=== PATIENT | female | born 1970 | race Caucasian/White ===

== ENCOUNTER → 2018-02-01 10:34 | Outpatient (CLI) | payer OTHER, SELFPAY | PROVIDERS: Visit Provider Emergency Medicine | DX: E11.9 Type 2 diabetes mellitus without complications (principal) ==

== ENCOUNTER → 2018-03-07 14:23 | Outpatient (CLI) | payer OTHER, SELFPAY ==
--- NOTE | 2018-03-07 14:23 | XR_ITS ---
XR ankle wt bearing LT min 3V HISTORY: Left ankle pain ORDERING PHYSICIAN: Susie Davis DPM PATIENT AGE: 47 years COMPARISON: None FINDINGS: Hypertrophic changes are present at the medial and lateral malleoli region with a separate calcific density at the tip of the medial malleolus which could be due to an old fracture. Osteoarthritic changes present at the tibiotalar joint with mild osteophyte formation slight decrease in the joint space. IMPRESSION: Mild osteoarthritis of the ankle
--- NOTE | 2018-03-07 14:23 | XR_ITS ---
XR foot wt bearing LT 3V HISTORY: Foot pain ORDERING PHYSICIAN: Susie Davis DPM PATIENT AGE: 47 years COMPARISON: None FINDINGS: No fracture or dislocation. No lytic or blastic change. There is normal mineralization.. The joint spaces are well-preserved. No significant degenerative/arthritic changes. No erosive changes evident. Borderline pes planus Mild nonspecific hypertrophic change involves the anterior distal aspect of the talus IMPRESSION: No acute finding. Borderline pes planus
--- NOTE | 2018-03-07 14:23 | XR_ITS ---
XR foot wt bearing RT 3V HISTORY: Right foot pain ORDERING PHYSICIAN: Susie Davis DPM PATIENT AGE: 47 years COMPARISON: None FINDINGS: There is moderate hallux valgus with first metatarsophalangeal angle of 37 degrees with osteoarthritic change of the first metatarsophalangeal joint and bony hypertrophy of the distal aspect of the first metatarsal. Several calcific densities are present at the base and medial aspect of the proximal phalanx of the great toe and could be related to old injury. No acute fracture or dislocation. No lytic or blastic change. IMPRESSION: Moderate hallux valgus with bunion formation and osteoarthritis of the first MTP joint with calcific debris at the medial aspect of first MTP joint
--- NOTE | 2018-03-07 14:23 | XR_ITS ---
XR ankle wt bearing RT min 3V HISTORY: Right ankle pain ORDERING PHYSICIAN: Susie Davis DPM PATIENT AGE: 47 years COMPARISON: None FINDINGS: A small calcific density is present at the medial tip of the fibula and may represent an old avulsion fracture. No other significant anomalies are evident. IMPRESSION: Old avulsion fracture of the tip of the lateral malleolus
== END ==
PROVIDERS: PCP Emergency Medicine; Visit Provider Podiatrist
DX: M79.673 Pain in unspecified foot (principal)
CPT/HCPCS: 73610; 73630

== ENCOUNTER 2018-03-28 15:05 | Outpatient (CLI) | payer OTHER, SELFPAY ==
[2018-03-28 15:42] LABS: PHA INR Fingerstick 1.9 (0.9-1.1)
== END 2018-03-28 15:48 | disposition home or self-care (01) ==
PROVIDERS: PCP Emergency Medicine; Visit Provider Emergency Medicine
DX: Z79.01 Long term (current) use of anticoagulants (principal); Z51.81 Encounter for therapeutic drug level monitoring; I63.40 Cerebral infarction due to embolism of unspecified cerebral artery
CPT/HCPCS: 85610; 99211; G0463

== ENCOUNTER 2018-04-07 15:01 | Outpatient (CLI) | payer OTHER, SELFPAY ==
[2018-04-07 15:52] LABS: PHA INR Fingerstick 2.1 (0.9-1.1)
== END 2018-04-07 15:59 | disposition home or self-care (01) ==
LOC: ACC 15:01
PROVIDERS: PCP Emergency Medicine; Visit Provider Emergency Medicine
DX: Z79.01 Long term (current) use of anticoagulants (principal); Z51.81 Encounter for therapeutic drug level monitoring; I63.9 Cerebral infarction, unspecified
CPT/HCPCS: 85610; 99211; G0463

== ENCOUNTER → 2018-08-05 13:08 | Outpatient (CLI) | payer OTHER, SELFPAY ==
[2018-08-05 18:28] LABS: Amphetamine/Metha Screen,Urine Negative ng/mL (<1000); Barbiturates Screen,Urine Negative ng/mL (<200); Benzodiazepines Screen,Urine Negative ng/mL (<200); Cannabinoid Screen,Urine Positive ng/mL (<50); Cocaine Screen,Urine Negative ng/mL (<300); Methadone Screen,Urine Negative ng/mL (<300); Opiate Screen,Urine Negative ng/mL (<300); Phencyclidine Screen,Urine Negative ng/mL (<25)
== END ==
PROVIDERS: Visit Provider Nurse Practitioner Family
DX: Z79.899 Other long term (current) drug therapy (principal)
CPT/HCPCS: 80305

== ENCOUNTER → 2018-11-03 13:21 | Outpatient (CLI) | payer OTHER, SELFPAY ==
[2018-11-03 14:07] LABS: Amphetamine/Metha Screen,Urine Negative ng/mL (<1000); Barbiturates Screen,Urine Negative ng/mL (<200); Benzodiazepines Screen,Urine Negative ng/mL (<200); Cannabinoid Screen,Urine Positive ng/mL (<50); Cocaine Screen,Urine Negative ng/mL (<300); Methadone Screen,Urine Negative ng/mL (<300); Opiate Screen,Urine Negative ng/mL (<300); Phencyclidine Screen,Urine Negative ng/mL (<25)
== END ==
PROVIDERS: Visit Provider Nurse Practitioner Family
DX: J39.2 Other diseases of pharynx (principal); Z79.899 Other long term (current) drug therapy
CPT/HCPCS: 80305

== ENCOUNTER → 2019-01-03 19:08 | Outpatient (CLI) | payer OTHER, SELFPAY ==
[2019-01-03 19:31] LABS: Basophils # 0.1 K/mm3 (0-0.2); Basophils % 0.7 % (0.1-2.0); Eosinophils # 0.2 K/mm3 (0.0-0.4); Eosinophils % 1.5 % (0.1-12.0); Hematocrit 46.5 % (37.0-47.0); Hemoglobin 15.4 g/dL (12.2-16.2); Lymphocytes # 4.8 K/mm3 (0.7-4.5); Lymphocytes % 41.4 % (10-50); Mean Corpuscular HGB Conc 33.2 g/dL (31.8-35.4); Mean Corpuscular Hemoglobin 31.2 pg (27.0-31.2); Monocytes # 0.8 K/mm3 (0.1-1.0); Monocytes % 6.6 % (1.7-9.3); Neutrophils # 5.8 K/mm3 (1.8-7.8); Neutrophils % 49.7 % (37.0-80.0); Platelet Count 595 K/mm3 (142-424); Red Blood Count 4.95 M/mm3 (4.20-5.40); Red Cell Distribution Width 13.3 % (11.5-17.5); White Blood Count 11.7 K/mm3 (4.8-10.8)
[2019-01-03 21:23] LABS: Hemoglobin A1C 10.8 % (0.0-7.0)
[2019-01-03 21:29] LABS: Alanine Aminotransferase 27 U/L (12-78); Albumin Level 3.5 gm/dL (3.4-5.0); Albumin/Globulin Ratio 0.9 (1.1-1.8); Alkaline Phosphatase 117 U/L (46-116); Anion Gap 17.5 mEq/L (5-15); Aspartate Amino Transferase 12 U/L (15-37); Bilirubin,Total 0.4 mg/dL (0.2-1.0); Blood Urea Nitrogen 7 mg/dL (7-18); Calcium 9.4 mg/dL (8.5-10.1); Carbon Dioxide 22 mmol/L (21.0-32.0); Chloride 97 mmol/L (98-107); Chol/HDL Ratio 4.6 (1-3.5); Cholesterol 166 mg/dL (140-200); Creatinine,Serum 0.75 mg/dL (0.55-1.02); Estimated Glomerular Filt Rate 83 ml/min (>60); Free T4 (Free Thyroxine) 0.88 ng/dl (0.76-1.46); GFR (African American) 100 ML/MIN (>60); Globulin 4.1 gm/dl (1.3-3.2); Glucose 324 mg/dL (74-106); HDL Cholesterol 36 mg/dL (29-89); Potassium 4.5 mmoL/L (3.5-5.1); Sodium 132 mmol/L (136-145); Thyroid Stimulating Hormone 2.83 uIU/ml (0.358-3.740); Total Protein,Serum 7.6 gm/dL (6.4-8.2)
[2019-01-03 21:30] LABS: Triglycerides 467 mg/dL (30-200)
[2019-01-05 07:49] LABS: Vitamin D 25 Hydroxy 10.4 ng/mL (30.0-100.0)
[2019-01-05 11:20] LABS: Creatinine, Urine 63.6 mg/dL (Not Estab.); Microalbumin, Urine 57.6 ug/mL (Not Estab.)
== END ==
PROVIDERS: Visit Provider Nurse Practitioner Family
DX: R53.83 Other fatigue (principal); E11.9 Type 2 diabetes mellitus without complications; R53.1 Weakness; E78.5 Hyperlipidemia, unspecified; I10 Essential (primary) hypertension; R69 Illness, unspecified
CPT/HCPCS: 80053; 80061; 82043; 82570; 82652; 83036; 84439; 84443; 85025

== ENCOUNTER → 2019-01-25 15:58 | Outpatient (CLI) | payer OTHER, SELFPAY | PROVIDERS: Visit Provider Nurse Practitioner Family | DX: R10.2 Pelvic and perineal pain (principal) | CPT/HCPCS: 87210 ==

== ENCOUNTER → 2019-01-27 17:56 | Outpatient (CLI) | payer OTHER, SELFPAY ==
[2019-01-27 19:11] LABS: Amphetamine/Metha Screen,Urine Negative ng/mL (<1000); Barbiturates Screen,Urine Negative ng/mL (<200); Benzodiazepines Screen,Urine Negative ng/mL (<200); Cannabinoid Screen,Urine Positive ng/mL (<50); Cocaine Screen,Urine Negative ng/mL (<300); Methadone Screen,Urine Negative ng/mL (<300); Opiate Screen,Urine Negative ng/mL (<300); Phencyclidine Screen,Urine Negative ng/mL (<25)
== END ==
PROVIDERS: Visit Provider Nurse Practitioner Family
DX: Z79.899 Other long term (current) drug therapy (principal)
CPT/HCPCS: 80305

== ENCOUNTER → 2019-04-25 13:58 | Outpatient (CLI) | payer OTHER, SELFPAY ==
[2019-04-25 14:39] LABS: Amphetamine/Metha Screen,Urine Negative ng/mL (<1000); Barbiturates Screen,Urine Negative ng/mL (<200); Benzodiazepines Screen,Urine Negative ng/mL (<200); Cannabinoid Screen,Urine Positive ng/mL (<50); Cocaine Screen,Urine Negative ng/mL (<300); Methadone Screen,Urine Negative ng/mL (<300); Opiate Screen,Urine Positive ng/mL (<300); Phencyclidine Screen,Urine Negative ng/mL (<25)
[2019-04-25 14:45] LABS: Hemoglobin A1C 10.9 % (0.0-7.0)
[2019-04-25 14:52] LABS: Chol/HDL Ratio 4.4 (1-3.5); Cholesterol 137 mg/dL (140-200); HDL Cholesterol 31 mg/dL (29-89)
[2019-04-25 14:53] LABS: Triglycerides 547 mg/dL (30-200)
[2019-05-01 12:19] LABS: Codeine Negative (Cutoff=100); Hydrocodone Negative (Cutoff=100); Hydromorphone Negative (Cutoff=100); Morphine Positive (.)
[2019-05-02 19:52] LABS: Morphine Confirm 800 ng/mL (Cutoff=100); Opiates Positive (.)
== END ==
PROVIDERS: Visit Provider Nurse Practitioner Family
DX: E11.9 Type 2 diabetes mellitus without complications (principal); Z79.899 Other long term (current) drug therapy; Z79.84 Long term (current) use of oral hypoglycemic drugs
CPT/HCPCS: 80061; 80305; 80361; 83036; G0480

== ENCOUNTER → 2019-04-27 13:52 | Outpatient (POV) | payer OTHER, SELFPAY | PROVIDERS: Visit Provider Internal Medicine Nephrology | DX: Z00.00 Encounter for general adult medical examination without abnormal findings (principal) ==

== ENCOUNTER → 2019-04-27 15:01 | Outpatient (CLI) | payer OTHER, SELFPAY ==
[2019-04-27 15:07] LABS: Microscopic, Urine URINE MICROSCOPIC (MICROSCOPIC)
[2019-04-27 16:02] LABS: Appearance,Urine CLEAR (Clear); Bilirubin,Urine Negative (Negative); Blood, Urine TRACE-I (Negative); Color,Urine YELLOW (Yellow); Glucose,Urine (UA) 2+ (Negative); Ketones,Urine Negative (Negative); Leukocyte Esterase,Urine Negative (Negative); Nitrate,Urine Negative (Negative); Protein,Urine Negative (Negative); Specific Gravity, Urine <= 1.005 (1.005-1.030); Urobilinogen,Urine 0.2 EU/dl (0.2)
[2019-04-27 16:10] LABS: Creatinine,Urine Random 21 mg/dL (20-320)
[2019-04-27 16:14] LABS: Basophils # 0.1 K/mm3 (0-0.2); Basophils % 0.7 % (0.1-2.0); Eosinophils # 0.2 K/mm3 (0.0-0.4); Eosinophils % 1.7 % (0.1-12.0); Hematocrit 36.8 % (37.0-47.0); Hemoglobin 13.1 g/dL (12.2-16.2); Lymphocytes # 6.5 K/mm3 (0.7-4.5); Lymphocytes % 44.2 % (10-50); Mean Corpuscular HGB Conc 35.4 g/dL (31.8-35.4); Mean Corpuscular Hemoglobin 32.3 pg (27.0-31.2); Mean Corpuscular Volume 91.2 fl (81-99); Mean Platelet Volume 7.4 fl (7.4-10.4); Monocytes # 0.9 K/mm3 (0.1-1.0); Monocytes % 5.9 % (1.7-9.3); Neutrophils % 47.6 % (37.0-80.0); Platelet Count 438 K/mm3 (142-424); Red Blood Count 4.04 M/mm3 (4.20-5.40); White Blood Count 14.6 K/mm3 (4.8-10.8)
[2019-04-27 16:24] LABS: Total Protein,Urine Random 5.4 mg/dL (0.0-11.9)
[2019-04-27 16:54] LABS: WBC,Urine Occasional #/hpf (0-3)
[2019-04-27 16:55] LABS: Bacteria,Urine Trace /lpf
[2019-04-27 18:12] LABS: Albumin Level 3.3 gm/dL (3.4-5.0); Anion Gap 14.5 mEq/L (5-15); Blood Urea Nitrogen 8 mg/dL (7-18); Calcium 8.8 mg/dL (8.5-10.1); Carbon Dioxide 26 mmol/L (21.0-32.0); Chloride 100 mmol/L (98-107); Creatinine,Serum 0.78 mg/dL (0.55-1.02); Estimated Glomerular Filt Rate 79 ml/min (>60); GFR (African American) 96 ML/MIN (>60); Glucose 270 mg/dL (74-106); Phosphorous 4.2 mg/dL (2.4-4.9); Potassium 3.5 mmoL/L (3.5-5.1); Sodium 137 mmol/L (136-145)
[2019-04-29 20:47] LABS: Parathyroid Hormone Intact 13 pg/mL (15-65); Vitamin D 25 Hydroxy 30.6 ng/mL (30.0-100.0)
== END ==
PROVIDERS: Visit Provider Internal Medicine Nephrology
DX: R80.9 Proteinuria, unspecified (principal)
CPT/HCPCS: 36415; 80069; 81001; 82570; 82652; 83970; 84155; 85025

== ENCOUNTER → 2019-05-24 14:46 | Outpatient (CLI) | payer OTHER, SELFPAY ==
[2019-05-24 15:37] VITALS: BMI 30.7
--- NOTE | 2019-05-24 16:05 | MM_ITS ---
MM Dig screening mamm BI w/CAD ORDERING PHYSICIAN : Yury Amaya MD PATIENT AGE: 48 years GENDER: Female COMPARISON: Only one prior screening mammogram from January 14, 2017 available. INDICATION: Routine screening mammogram No hormones. No new complaints. Noncontributory family history. TECHNIQUE: Standard CC and MLO images were obtained. R2 CAD reviewed. ======= Changes again saw horse [place] [employer] [place] off [address] [place] ROUTINE, SCREENING MAMM: FINDINGS: Lower density breast with mild to moderate residual residual fibroglandular elements. Mild/moderate fatty replacement. RIGHT BREAST: No suspicious areas. No new areas significant concern Overlapping markings at the superior breast again for density here which dissipates on the cc view. Only minimal Linear fibroglandular elements towards lateral breast seen on cc view . No focal mass or discrete density of significant concern between the 2 projections Follow-up breast exam, as well as self breast exam bilaterally, but with attention the upper outer quadrant right breast suggested & may be of benefit to compliment mammography. LEFT BREAS :No suspicious areas. No new areas of significant concern. Similar fibroglandular elements lateral retroareolar region, unchanged previous study ...... IMPRESSION: ......... No new areas of significant concern. Bilateral follow-up in one year Areas of density on one view dissipate on the other projection-supporting merely overlapping fibroglandular elements Cc views appear unchanged.... Follow-up in not over one year recommended. BI-RADS Category: 2 Benign Finding(s) RECOMMENDED FOLLOW-UP: 1YR 1 YEAR FOLLOW-UP (A letter has been sent to the patient regarding results of the study.)
== END ==
LOC: DIETICIAN 14:50 → RAD 16:08
PROVIDERS: PCP Emergency Medicine; Visit Provider Emergency Medicine
DX: Z12.31 Encounter for screening mammogram for malignant neoplasm of breast (principal); Z71.3 Dietary counseling and surveillance; E11.40 Type 2 diabetes mellitus with diabetic neuropathy, unspecified
CPT/HCPCS: 77067; 97802

== ENCOUNTER 2020-09-17 16:39 | Emergency (ER) | payer MEDICAID, SELFPAY ==
[2020-09-17 17:06] VITALS: BP 130/98; PULSE 90; RESP 18; TEMP 36.7; O2SAT 95; BMI 29.9
[2020-09-17 17:26] LABS: Adenovirus,PCR Not Detected (NotDetected); Bordetella Pertussis Not Detected (NotDetected); Chlamydophila Pneumoniae, PCR Not Detected (NotDetected); Coronavirus 19, PCR Not Detected (NotDetected); Coronavirus 229E Not Detected (NotDetected); Coronavirus NL63 Not Detected (NotDetected); Coronavirus OC43 Not Detected (NotDetected); Coronovirus HKU1,PCR Not Detected (NotDetected); Human Metapneumovirus Not Detected (NotDetected); Influenza A, PCR Not Detected (NotDetected); Influenza AH1, 2009 Not Detected (NotDetected); Influenza AH1, PCR Not Detected (NotDetected); Influenza AH3,PCR Not Detected (NotDetected); Influenza B, PCR Not Detected (NotDetected); Mycoplasma Pneumoniae, PCR Not Detected (NotDetected); Parainfluenza 1, PCR Not Detected (NotDetected); Parainfluenza 2, PCR Not Detected (NotDetected); Parainfluenza 3, PCR Not Detected (NotDetected); Parainfluenza 4, PCR Not Detected (NotDetected); Respiratory Syncytial Virus Not Detected (NotDetected); Rhinovirus/Enterovirus Not Detected (NotDetected)
--- NOTE | 2020-09-17 17:50 | HMH.EDUTC ---
[facility] [place] Clinical Impression: Encounter for laboratory testing for COVID-19 virus Diarrhea Qualifiers: Diarrhea type: unspecified type Qualified Code(s): R19.7 - Diarrhea, unspecified Disposition: Home, Self-Care Condition on Discharge: Good Instructions: Preventing the Spread of Coronavirus Discharge Instructions, Diarrhea Additional Instructions: You was tested for today for COVID19 your test result should be back in the next 24 hours, you may call tomorrow after 9am to see if your test results are back and the result You was given a handout with instructions for Self Quarantine and Self isolation for while you wait on test results and what to do if they are positive ? Avoid fruit juices, as these do not replace minerals and can actually increase diarrhea. ? Children and adults can use sports drinks to replenish electrolytes. Younger children and infants should use products formulated for children, like oral rehydration solutions. ? Eat food in small amounts and let your stomach recover. ? Get lots of rest. You may feel tired or weak. ? No greasy or fried foods for the next 24-48 hours BRAT diet Bananas Rice Apples and [place] ? Make sure to drink plenty of liquids ? Return if needed ? Straight to ER if any life threatening symptoms ? You was given an outpatient order for diarrhea panel, please collect specimen and bring back to outpatient lab then call back to the [facility] or follow up with family doctor for results ? Follow up with family doctor in the next 48-72 hours if no improvement or any worsening of symptoms Referrals: PCP,No [Primary Care Provider] - As needed Forms: Work/School Release Time of Disposition: 17:52 Medical Decision Making - Carter Inquiry Pt receiving controlled substance: No Carter was queried for this patient: No Vital Signs: 09/17/20 17:06 Temperature 98.0 F Temperature Source Oral Pulse Rate [Radial] 90 Respiratory Rate 18 Blood Pressure [Right Arm] 130/98 H Blood Pressure Mean [Right Arm] 108 Blood Pressure Source [Right Arm] Automatic Cuff Blood Pressure Position [Right Arm] Sitting 02 Sat by Pulse Oximetry 95 Oxygen Delivery Method Room Air Orders (Tests/Meds): ORDERS Category Date Time Status Full Resp Panel w/COVID ([facility]) Routine Lab 09/17/20 17:01 [place] [facility] [place] - General Stated complaint: Diarrhea Wants COVID test Time Seen by Provider: 09/17/20 17:50 Mode of Arrival: Ambulatory Source of Information: Patient Limitations: No Limitations Description of Symptoms (Recalled from Triage Doc. by RN): states she has diarrhea and just wants to make sure she doesn't have COVID. HEENT Symptoms (Recalled from RN notes): No Resp Symptoms (Recalled from RN notes): No Skin Symptoms (Recalled from RN notes): No MS Symptoms (Recalled from RN notes): No Functional Status (Recalled from RN notes): wnl - History of Present Illness Provider Complaint: Patient states that she has had mild diarrhea for a couple of days and so has family and not sure if she has stomach virus or COVID and so she came in today to get checked for COVID - Related Data Home Medications Medication Instructions Recorded Confirmed warfarin 5 mg tablet 5 mg PO DAILY tab 03/28/18 04/25/19 Previous Rx's Medication Instructions Recorded fluticasone propionate 50 1 spray INTRANASAL QDAY 30 Days 11/03/18 mcg/actuation nasal #9.9 g spray,suspension aspirin 325 mg tablet 325 mg PO DAILY #90 tab 11/18/18 cholecalciferol (vitamin D3) 125 5,000 unit PO DAILY #30 cap 01/06/19 mcg (5,000 unit) capsule ergocalciferol (vitamin D2) 1,250 50,000 unit PO QWEEK #4 cap 01/06/19 mcg (50,000 unit) capsule gabapentin 300 mg capsule 300 mg PO TID #90 cap 04/25/19 sitagliptin 100 mg tablet 100 mg PO DAILY #30 tab 05/05/19 lisinopril 2.5 mg tablet 2.5 mg PO DAILY #90 tab 06/12/19 blood sugar diagnostic See Dose Instructions .ROUTE 07/04/19 .MEDSUPPLY #100 each citalopram 40 mg tablet 40 mg PO DAILY
[2020-09-17 18:02] VITALS: BP 130/98; PULSE 90; RESP 18; TEMP 36.7; O2SAT 95
== END 2020-09-17 18:03 | disposition home or self-care (01) ==
PROVIDERS: Emergency Provider Nurse Practitioner
DX: Z20.828 Contact with and (suspected) exposure to other viral communicable diseases (principal); R19.7 Diarrhea, unspecified; F41.8 Other specified anxiety disorders; E78.5 Hyperlipidemia, unspecified; I10 Essential (primary) hypertension; E11.9 Type 2 diabetes mellitus without complications; F17.210 Nicotine dependence, cigarettes, uncomplicated; Z79.899 Other long term (current) drug therapy
CPT/HCPCS: 87581; 87633; 87798; 99201; U0003

== ENCOUNTER 2020-10-23 12:38 | Emergency (ER) | payer MEDICAID, SELFPAY ==
[2020-10-23 12:45] VITALS: BP 116/82; PULSE 88; RESP 18; TEMP 36.4; O2SAT 97; BMI 29.9
--- NOTE | 2020-10-23 13:08 | HMH.EDUTC ---
[facility] [place] Clinical Impression: Encounter for laboratory testing for COVID-19 virus Disposition: Home, Self-Care Condition on Discharge: Good Instructions: Preventing the Spread of Coronavirus Discharge Instructions Additional Instructions: *Monitor Temp, Over the counter Motrin or Tylenol as directed/as needed Tylenol every 4 hours and Motrin every 6 hours (as long as your family doctor has told you that you can take it) for fever or pain. and straight to ER if unable to lower temp less than 101.0 after medication given *Warm salt water gargles may help to soothe the throat *Throat Lozenges *Warm fluids like tea with honey may help to soothe the throat *Sleep elevated *Humidifier/Vaporizer Follow up IMMEDIATELY for new or worsening symptoms or no Noticeable improvement over the next 48-72 hours. 911 for difficulty breathing or swallowing You was tested for today for COVID19 your test result should be back in the next 24-48 hours, you may call to the [facility] tomorrow to see if your test results are back however could take up to 48 hours before results are back [phone] [facility] hours are 9am-9pm You was given a handout with instructions for Self Quarantine and Self isolation for while you wait on test results and what to do if they are positive If you are positive the Health Dept will be contacting you also Referrals: Manfred Sherwood MD [Primary Care Provider] - As needed Time of Disposition: 13:09 Medical Decision Making - Carter Inquiry Pt receiving controlled substance: No Carter was queried for this patient: No Vital Signs: 10/23/20 12:45 Temperature 97.6 F Temperature Source Oral Pulse Rate [Right Brachial] 88 Respiratory Rate 18 Blood Pressure [Right Arm] 116/82 Blood Pressure Mean [Right Arm] 93 Blood Pressure Source [Right Arm] Automatic Cuff Blood Pressure Position [Right Arm] Sitting 02 Sat by Pulse Oximetry 97 Oxygen Delivery Method Room Air Orders (Tests/Meds): ORDERS Category Date Time Status Covid-19 Nasal PCR Sendout Rupesh Stat Lab 10/23/20 12:55 Ordered [facility] [place] HPI - General Stated complaint: Fever Time Seen by Provider: 10/23/20 13:09 Mode of Arrival: Ambulatory Source of Information: Patient Limitations: No Limitations Description of Symptoms (Recalled from Triage Doc. by RN): PATIENT REQUESTING COVID TEST. SHE STATES HER PCP COULD NOT SEE HER D/T HER HAVING A FEVER AND SENT HER HERE TO GET A COVID TEST HEENT Symptoms (Recalled from RN notes): No Resp Symptoms (Recalled from RN notes): No Skin Symptoms (Recalled from RN notes): No MS Symptoms (Recalled from RN notes): No Functional Status (Recalled from RN notes): WNL - History of Present Illness Provider Complaint: Patient states that she had appointment today with her PCP but they would not see her because she had a fever this morning and told her that she needed to go to the [facility] and get a COVID test State that she took Tylenol and fever went down and not having any symptoms - Related Data Home Medications Medication Instructions Recorded Confirmed warfarin 5 mg tablet 5 mg PO DAILY tab 03/28/18 04/25/19 Previous Rx's Medication Instructions Recorded fluticasone propionate 50 1 spray INTRANASAL QDAY 30 Days 11/03/18 mcg/actuation nasal #9.9 g spray,suspension aspirin 325 mg tablet 325 mg PO DAILY #90 tab 11/18/18 cholecalciferol (vitamin D3) 125 5,000 unit PO DAILY #30 cap 01/06/19 mcg (5,000 unit) capsule ergocalciferol (vitamin D2) 1,250 50,000 unit PO QWEEK #4 cap 01/06/19 mcg (50,000 unit) capsule gabapentin 300 mg capsule 300 mg PO TID #90 cap 04/25/19 sitagliptin 100 mg tablet 100 mg PO DAILY #30 tab 05/05/19 lisinopril 2.5 mg tablet 2.5 mg PO DAILY #90 tab 06/12/19 blood sugar diagnostic See Dose Instructions .ROUTE 07/04/19 .MEDSUPPLY #100 each citalopram 40 mg tablet 40 mg PO DAILY #90 tab 07/25/19 atorvastatin 80 mg tablet See Rx Instructions .ROUTE 07/27/19 .COMPLEX #90 tab levoceti
[2020-10-23 13:13] VITALS: BP 116/82; PULSE 88; RESP 18; TEMP 36.4; O2SAT 97
[2020-10-25 13:22] LABS: Covid-19 Nasal PCR Sendout Lex NOT DETECTED
== END 2020-10-23 13:15 | disposition home or self-care (01) ==
PROVIDERS: Emergency Provider Nurse Practitioner; PCP Emergency Medicine
DX: Z20.828 Contact with and (suspected) exposure to other viral communicable diseases (principal); R50.9 Fever, unspecified
CPT/HCPCS: 99201; U0004

== ENCOUNTER 2023-02-09 14:48 | Inpatient (IN) | payer MEDICAID, SELFPAY ==
[2023-02-09] VITALS (7 sets, daily range): BP systolic 116–148; BP diastolic 62–72; PULSE 69–79; RESP 17–19; TEMP 36.5–37.4; O2SAT 93–96; BMI 34.9; BMI 34.0
--- NOTE | 2023-02-09 14:51 | HMH.EDGENADL ---
Discharge Plan Disposition Patient Disposition: Admitted As Inpatient Prescriptions Prescriptions: No Action warfarin 5 mg tablet 5 mg PO DAILY gabapentin 300 mg capsule 600 mg PO BID insulin glargine [Basaglar KwikPen U-100 Insulin] 100 unit/mL (3 mL) insulin pen 60 unit SQ BID buprenorphine-naloxone 8-2 mg tablet, sublingual 1 tab sublingual DAILY atorvastatin 80 mg tablet See Rx Instructions .ROUTE .COMPLEX Rx Instructions: TAKE 1 TABLET BY MOUTH ONCE DAILY citalopram [Celexa] 40 mg tablet 40 mg PO DAILY ergocalciferol (vitamin D2) 50,000 unit capsule 50,000 unit PO QWEEK lisinopril 2.5 mg tablet 2.5 mg PO DAILY cholecalciferol (vitamin D3) 5,000 unit capsule 5,000 unit PO DAILY Referrals Follow up/Referrals: Hernan Gooden [Primary Care Provider] - See instructions Clinical Impressions Clinical Impression: Closed left hip fracture Discharge ED Provider: Justice Salvador General Adult HPI General Chief complaint: Extremity Injury, Lower Stated complaint: Fall@home 02/05 LT hip pain Time Seen by Provider: 02/09/23 14:51 History of Present Illness HPI narrative: 52-year-old female with chronic left hip pain presenting with acute worsening of her pain after a fall on Wednesday which is mechanical. The syncopal episode from history. Patient states she fell directly onto her left hip and had significant pain and stiffness and swelling at that time however this has been getting better. Went to her Suboxone physician today who prescribed 60 mg of ibuprofen which she did not take yet decided to come to the emergency department to get this further evaluated. She normally walks without any type of assistance but recently has been using a walker since this fall which she had loaned to her from her friend. Denies any injuries elsewhere. Related Data Home Medications Medication Instructions Recorded Confirmed warfarin 5 mg tablet 5 mg PO DAILY Blood thinner 03/28/18 02/09/23 buprenorphine 8 mg-naloxone 2 mg 1 tab sublingual DAILY chronic pain 01/20/23 02/09/23 sublingual tablet gabapentin 300 mg capsule 600 mg PO BID neuropathy 01/20/23 02/09/23 insulin glargine 100 unit/mL (3 60 unit SQ BID Diabetes 01/20/23 02/09/23 mL) subcutaneous pen (Basaglar KwikPen U-100 Insulin) atorvastatin 80 mg tablet See Rx Instructions .Route 02/09/23 02/09/23 .COMPLEX Cholesterol cholecalciferol (vitamin D3) 125 5,000 unit PO DAILY Supplement 02/09/23 02/09/23 mcg (5,000 unit) capsule citalopram 40 mg tablet (Celexa) 40 mg PO DAILY Mood 02/09/23 02/09/23 ergocalciferol (vitamin D2) 1,250 50,000 unit PO QWEEK Supplement 02/09/23 02/09/23 mcg (50,000 unit) capsule lisinopril 2.5 mg tablet 2.5 mg PO DAILY blood pressure 02/09/23 02/09/23 Allergies Allergy/AdvReac Type Severity Reaction Status Date / Time No Known Allergies Allergy Verified 01/20/23 14:17 [facility] Disclaimer: The information contained in this section may have been updated after the patient was seen, as this information can be updated by other users. Surgical History History of ankle surgery History of partial hysterectomy Hx of section Hx of hernia repair Hx of tubal ligation Family History Other Diabetes Social History Smoking Status: Current every day smoker tobacco type: cigarettes packs per day: 1 second hand exposure: Yes alcohol intake: never substance use type: marijuana and amphetamines current occupational status: other Travel in the last 8 weeks: None household members: family housing: house ROS Obtained: Yes All systems reviewed & no additional complaints except as documented Physical Exam General General appearance: alert Respiratory Respiratory exam: Present normal lung lili
--- NOTE | 2023-02-09 14:57 | XR_ITS ---
FINAL REPORT CLINICAL HISTORY: fall 5 days ago. left hip pain FINDINGS: 2 views of the left hip and an AP pelvis were obtained. There is a mildly comminuted and displaced oblique fracture of the proximal left femur. The femoral head is properly located. There are no soft tissue abnormalities. IMPRESSION: Intertrochanteric left femur fracture. Reviewed, Interpreted and Dictated by Gaston Javier MD Transcribed by Ariel Escudero Authenticated and [facility]
--- NOTE | 2023-02-09 16:00 | PC.NURSE ---
waiting consulting practice manager from dr. hernandez who is consulting practice manager for orthopedics, office staff reports he is in with a pt.
[2023-02-09 16:06] LABS: Basophils # 0.3 K/mm3 (0-0.2); Basophils % 1.4 % (0.1-2.0); Eosinophils # 0.4 K/mm3 (0.0-0.4); Eosinophils % 1.8 % (0.1-12.0); Hematocrit 48.9 % (37.0-47.0); Hemoglobin 16.4 g/dL (12.2-16.2); Lymphocytes # 6.2 K/mm3 (0.7-4.5); Lymphocytes % 28.9 % (10-50); Mean Corpuscular HGB Conc 33.7 g/dL (31.8-35.4); Mean Corpuscular Hemoglobin 31.6 pg (27.0-31.2); Mean Corpuscular Volume 93.8 fl (81-99); Mean Platelet Volume 8.5 fl (7.4-10.4); Monocytes # 1.1 K/mm3 (0.1-1.0); Monocytes % 5.1 % (1.7-9.3); Neutrophils # 13.5 K/mm3 (1.8-7.8); Neutrophils % 62.8 % (37.0-80.0); Platelet Count 600 K/mm3 (142-424); Red Blood Count 5.21 M/mm3 (4.20-5.40); Red Cell Distribution Width 13.1 % (11.5-17.5); White Blood Count 21.5 K/mm3 (4.8-10.8)
[2023-02-09 16:09] LABS: MANUAL DIFFERENTIAL MANUAL DIFFERENTIAL (MANUAL DIFF)
--- NOTE | 2023-02-09 16:12 | PC.NURSE ---
Contacted Ortho office for DR. Greene to call KARLA GRIMES back
[2023-02-09 16:14] LABS: Alanine Aminotransferase 25 U/L (12-78); Albumin Level 4.3 g/dl (3.5-5.0); Albumin/Globulin Ratio 1.2 (1.1-1.8); Alkaline Phosphatase 95 U/L (38-126); Anion Gap 12.4 mEq/L (5-15); Aspartate Amino Transferase 39 U/L (14-36); Bilirubin,Total 1.1 mg/dl (0.2-1.3); Blood Urea Nitrogen 24 mg/dl (7-17); Calcium 8.5 mg/dl (8.4-10.2); Carbon Dioxide 27 mmol/L (22.0-30.0); Chloride 99 mmol/L (98-107); Creatinine Clearance Estimated 125 mL/min (50-200); Estimated Glomerular Filt Rate 76 ml/min (>60); GFR (African American) 92 ML/MIN (>60); Globulin 3.6 g/dL (1.3-3.2); Glucose 61 mg/dl (74-100); Potassium 3.4 mmoL/L (3.5-5.1); Sodium 135 mmol/L (136-145); Total Protein,Serum 7.9 g/dl (6.3-8.2)
--- NOTE | 2023-02-09 16:14 | PC.NURSE ---
rad states sending down preliminary result for pt
[2023-02-09 16:16] LABS: Activated Partial Thrombo Time 27.8 seconds (22.8-30.6); INR 0.98 (0.9-1.1); Prothrombin Time 10.6 seconds (10.1-12.5)
--- NOTE | 2023-02-09 16:18 | PC.NURSE ---
rounded on pt at this time, states pain has improved, talking on her phone to family at this time, call light in reach
--- NOTE | 2023-02-09 16:22 | PC.NURSE ---
dr. elder reports will call back
--- NOTE | 2023-02-09 16:35 | PC.NURSE ---
KARLA GRIMES speaking with Dr. Greene
--- NOTE | 2023-02-09 16:36 | PC.NURSE ---
pt reports no longer taking coumadin
[2023-02-09 16:54] LABS: Eosinophils % 2 % (0-3); Lymphocytes % 33 % (10-50); Monocytes % 3 % (2-9); Neutrophils % 62 % (42-76); Platelet Estimate Marked Increase; Total Cells Counted 100
[2023-02-09 16:55] LABS: RBC Morphology Normal
--- NOTE | 2023-02-09 16:55 | PC.NURSE ---
KARLA GRIMES speaking with Dr. Hope
--- NOTE | 2023-02-09 17:00 | PC.NURSE ---
notified household chores of admission
--- NOTE | 2023-02-09 17:00 | EXP.HP ---
History of Present Illness *Admission Date: 02/09/23 *Reason for visit:: Left hip pain *History of present illness: Ms. Coronel is a 52-year-old female with diabetes, hypertension, obesity who presented to the ER because of persistent left hip pain since last Wednesday. States she was not doing as good a job controlling her blood sugar and felt weak over the past several weeks. On Wednesday she fell and had acute worsening of pain. Thought that she bruised her hip and was hesitant to come to the ER/hospital for further evaluation. Her fall was from a standing height because of a syncopal event. She has had significant stiffness, swelling, pain since Wednesday. She normally walks without any assistive device but has required a walker since her fall on Wednesday. Denies any shortness of breath, chest pain, nausea, vomiting, confusion, head trauma. No bruising or bleeding. On evaluation in the ER, noted to have left hip fracture on imaging. Orthopedics consulted, medicine consulted for admission. After arriving to the floor, patient states that her pain is stable. Orthopedics is already evaluated, plan for surgery tomorrow. Tolerating p.o. intake, on room air. [facility] Disclaimer: The information contained in this section may have been updated after the patient was seen, as this information can be updated by other users. Medical History Diabetes Hyperlipidemia Neuropathy Stroke Surgical History History of ankle surgery History of partial hysterectomy Hx of section Hx of hernia repair Hx of tubal ligation Family History Diabetes Social History Smoking Status: Current every day smoker tobacco type: cigarettes packs per day: 1 second hand exposure: Yes alcohol intake: never substance use type: marijuana and amphetamines current occupational status: other Travel in the last 8 weeks: None household members: family housing: house Review of Systems Review of Systems Review of systems (narrative): 14 point review of systems performed, pertinent positives and negatives as per HPI Meds Home Medications and Allergies Home Medications Medication Instructions Recorded Confirmed Type buprenorphine 8 mg-naloxone 2 mg 1 tab sublingual DAILY chronic pain 01/20/23 02/09/23 History sublingual tablet gabapentin 300 mg capsule 600 mg PO BID neuropathy 01/20/23 02/09/23 History insulin glargine 100 unit/mL (3 60 unit SQ BID Diabetes 01/20/23 02/09/23 History mL) subcutaneous pen (Basaglar KwikPen U-100 Insulin) cholecalciferol (vitamin D3) 125 5,000 unit PO DAILY Supplement 02/09/23 02/09/23 History mcg (5,000 unit) capsule citalopram 40 mg tablet (Celexa) 40 mg PO DAILY Mood 02/09/23 02/09/23 History ergocalciferol (vitamin D2) 1,250 50,000 unit PO QWEEK Supplement 02/09/23 02/09/23 History mcg (50,000 unit) capsule lisinopril 2.5 mg tablet 20 mg PO DAILY blood pressure 02/09/23 02/09/23 History trazodone 50 mg tablet 50 mg PO DAILY . 02/09/23 02/09/23 History New Prescriptions to Start Prescriptions: Allergies Allergy/AdvReac Type Severity Reaction Status Date / Time No Known Allergies Allergy Verified 01/20/23 14:17 Exam Data for Last 24 hours Vital signs and Labs for Last 24 Hours: Temp Pulse Resp BP Pulse Ox 97.7 F 79 19 148/69 H 93 L 02/09/23 14:49 02/09/23 16:01 02/09/23 14:49 02/09/23 16:01 02/09/23 16:01 Laboratory Results - last 24 hr 02/09/23 15:54: WBC 21.5 H*, RBC 5.21, Hgb 16.4 H, Hct 48.9 H, MCV 93.8, MCH 31.6 H, MCHC 33.7, RDW 13.1, Plt Count 600 H, MPV 8.5, Neut % (Auto) 62.8, Lymph % (Auto) 28.9, Perry % (Auto) 5.1, Eos % (Auto) 1.8, Baso % (Auto) 1.4, Neut # (Auto) 13.5 H, Lymph # (Auto) 6.2 H, Perry # (Auto) 1.1 H, Eos # (Auto) 0.4, Baso # (Au
[2023-02-09 17:01] LABS: Coronavirus 19, PCR Not Detected (NotDetected); Influenza A, PCR Not Detected (NotDetected); Influenza B, PCR Not Detected (NotDetected)
--- NOTE | 2023-02-09 17:11 | CT_ITS ---
PROCEDURE INFORMATION: Exam: CT Left Lower Extremity Without Contrast, Hip Exam date and time: 02/09/2023 5:22 PM Age: 52 years old Clinical indication: Injury or trauma; Fall; Additional info: Eval for pathologic FX TECHNIQUE: Imaging protocol: CT of the left lower extremity without contrast was performed. Exam focused on the hip. 3D rendering (Not supervised by radiologist): MIP and/or 3D reconstructed images were created by the technologist. Radiation optimization: All CT scans at this facility use at least one of these dose optimization techniques: automated exposure control; mA and/or kV adjustment per patient size (includes targeted exams where dose is matched to clinical indication); or iterative reconstruction. REPORTING DATA: Count of CT and Cardiac NM exams in prior 12 months: This patient has received 0 known CTs and 0 known cardiac nuclear medicine studies in the 12 months prior to the current study. COMPARISON: CR XR HIP LT 2-3V W/PELVIS 02/09/2023 2:56 PM FINDINGS: Bones/joints: Acute comminuted obliquely oriented intertrochanteric fracture with 2.5 cm overriding and anterior displacement of the distal fracture component. Multiple small bone fragments along the major fracture line. There is no dislocation of the femoral head. Remainder the visualized osseous structures are intact. Soft tissues: Mild soft tissue swelling and joint effusion. IMPRESSION: Acute comminuted displaced intertrochanteric fracture left hip.
--- NOTE | 2023-02-09 17:12 | PC.NURSE ---
Dr. Greene at [facility]
--- NOTE | 2023-02-09 17:14 | PC.NURSE ---
per Dr. Greene pt needs to be NPO after midnight and also gave verbal order for ua
--- NOTE | 2023-02-09 17:18 | EXP.ORTH.CON ---
History of Present Illness *Admission Date: 02/09/23 *Reason for visit:: Left hip fracture *History of present illness: 52-year-old female diabetic who suffered a mechanical fall at home on Wednesday. She has significant pain was having difficulty ambulating she borrowed a walker from a friend. She was putting all the weight on her right leg. Today the pain became too much she came to the emergency room for evaluation subsequent found to have hip fracture left hip. Orthopedics consulted for definitive treatment [facility] Disclaimer: The information contained in this section may have been updated after the patient was seen, as this information can be updated by other users. Medical History Diabetes Hyperlipidemia Neuropathy Stroke Surgical History History of ankle surgery History of partial hysterectomy Hx of section Hx of hernia repair Hx of tubal ligation Family History Other Diabetes Social History Smoking Status: Current every day smoker tobacco type: cigarettes packs per day: 1 second hand exposure: Yes alcohol intake: never substance use type: marijuana and amphetamines current occupational status: other Travel in the last 8 weeks: None household members: family housing: house Review of Systems Review of Systems Review of systems:: pertinent systems reviewed and negative unless documented below Meds Home Medications and Allergies Home Medications Medication Instructions Recorded Confirmed Type buprenorphine 8 mg-naloxone 2 mg 1 tab sublingual DAILY chronic pain 01/20/23 02/09/23 History sublingual tablet gabapentin 300 mg capsule 600 mg PO BID neuropathy 01/20/23 02/09/23 History insulin glargine 100 unit/mL (3 60 unit SQ BID Diabetes 01/20/23 02/09/23 History mL) subcutaneous pen (Basaglar KwikPen U-100 Insulin) cholecalciferol (vitamin D3) 125 5,000 unit PO DAILY Supplement 02/09/23 02/09/23 History mcg (5,000 unit) capsule citalopram 40 mg tablet (Celexa) 40 mg PO DAILY Mood 02/09/23 02/09/23 History ergocalciferol (vitamin D2) 1,250 50,000 unit PO QWEEK Supplement 02/09/23 02/09/23 History mcg (50,000 unit) capsule lisinopril 2.5 mg tablet 20 mg PO DAILY blood pressure 02/09/23 02/09/23 History trazodone 50 mg tablet 50 mg PO DAILY . 02/09/23 02/09/23 History New Prescriptions to Start Prescriptions: Allergies Allergy/AdvReac Type Severity Reaction Status Date / Time No Known Allergies Allergy Verified 01/20/23 14:17 Ortho Exam (Inpt) Vital signs and Labs for Last 24 Hours: Temp Pulse Resp BP Pulse Ox 97.7 F 79 19 148/69 H 93 L 02/09/23 14:49 02/09/23 16:01 02/09/23 14:49 02/09/23 16:01 02/09/23 16:01 Laboratory Results - last 24 hr 02/09/23 15:54: WBC 21.5 H*, RBC 5.21, Hgb 16.4 H, Hct 48.9 H, MCV 93.8, MCH 31.6 H, MCHC 33.7, RDW 13.1, Plt Count 600 H, MPV 8.5, Neut % (Auto) 62.8, Lymph % (Auto) 28.9, [place] % (Auto) 5.1, Eos % (Auto) 1.8, Baso % (Auto) 1.4, Neut # (Auto) 13.5 H, Lymph # (Auto) 6.2 H, [place] # (Auto) 1.1 H, Eos # (Auto) 0.4, Baso # (Auto) 0.3 H, Total Counted 100, Neutrophils % (Manual) 62, Lymphocytes % (Manual) 33, Monocytes % (Manual) 3, Eosinophils % (Manual) 2, Platelet Estimate Marked increase, RBC Morphology Normal 02/09/23 15:54: PT 10.6, INR 0.98, APTT 27.8 02/09/23 15:54: Sodium 135 L, Potassium 3.4 L, Chloride 99, Carbon Dioxide 27, Anion Gap 12.4, BUN 24 H, Creatinine 0.80, Estimated Creat Clear 125, Estimated GFR 76, Est GFR ( Amer) 92, Glucose 61 L, Calcium 8.5, Total Bilirubin 1.1, AST 39 H, ALT 25, Alkaline Phosphatase 95, Total Protein 7.9, Albumin 4.3, Globulin 3.6 H, Albumin/Globulin Ratio 1.2 I & O for Labs for Last 24 Hours: Intake & Output 02/06/23 02/07/23 02/08/23
[2023-02-09 17:41] LABS: Hemoglobin A1C 8.5 % (4.0-6.0)
[2023-02-09 18:23] LABS: Microscopic, Urine URINE MICROSCOPIC (MICROSCOPIC)
[2023-02-09 18:34] LABS: Appearance,Urine CLEAR (Clear); Bilirubin,Urine Negative (Negative); Blood, Urine Negative (Negative); Color,Urine YELLOW (Yellow); Glucose,Urine (UA) Negative (Negative); Ketones,Urine TRACE (Negative); Leukocyte Esterase,Urine Negative (Negative); Nitrate,Urine Negative (Negative); Protein,Urine Negative (Negative); Specific Gravity, Urine 1.015 (1.005-1.030); Urobilinogen,Urine 0.2 EU/dl (0.2)
[2023-02-09 18:59] LABS: Bacteria,Urine Trace /lpf; WBC,Urine Occasional #/hpf (0-3)
[2023-02-09 21:33] LABS: POC Glucose,Bedside 213 (70-110)
[2023-02-10] VITALS (19 sets, daily range): BP systolic 105–166; BP diastolic 39–80; PULSE 56–98; RESP 16–20; TEMP 6.1–43; O2SAT 89–98; BMI 34.2
--- NOTE | 2023-02-10 05:53 | PC.NURSE ---
Pt has c/o pain in left hip 2x t/o shift. PRN Toradol administered, pt states favorable results. Call light within reach.
[2023-02-10 06:39] LABS: POC Glucose,Bedside 116 (70-110)
[2023-02-10 06:43] LABS: Basophils # 0.3 K/mm3 (0-0.2); Basophils % 1.7 % (0.1-2.0); Eosinophils # 0.6 K/mm3 (0.0-0.4); Hematocrit 46.6 % (37.0-47.0); Hemoglobin 15.2 g/dL (12.2-16.2); Lymphocytes # 6.6 K/mm3 (0.7-4.5); Lymphocytes % 43.2 % (10-50); Mean Corpuscular HGB Conc 32.6 g/dL (31.8-35.4); Mean Corpuscular Hemoglobin 30.9 pg (27.0-31.2); Mean Corpuscular Volume 94.8 fl (81-99); Mean Platelet Volume 8.5 fl (7.4-10.4); Monocytes # 0.9 K/mm3 (0.1-1.0); Monocytes % 5.7 % (1.7-9.3); Neutrophils % 45.4 % (37.0-80.0); Platelet Count 566 K/mm3 (142-424); Red Blood Count 4.92 M/mm3 (4.20-5.40); Red Cell Distribution Width 13.1 % (11.5-17.5); White Blood Count 15.3 K/mm3 (4.8-10.8)
[2023-02-10 06:45] LABS: MANUAL DIFFERENTIAL MANUAL DIFFERENTIAL (MANUAL DIFF)
[2023-02-10 06:57] LABS: Alanine Aminotransferase 20 U/L (12-78); Albumin Level 3.3 g/dl (3.5-5.0); Albumin/Globulin Ratio 1.1 (1.1-1.8); Alkaline Phosphatase 79 U/L (38-126); Anion Gap 7.2 mEq/L (5-15); Aspartate Amino Transferase 38 U/L (14-36); Bilirubin,Total 0.9 mg/dl (0.2-1.3); Blood Urea Nitrogen 20 mg/dl (7-17); Calcium 7.7 mg/dl (8.4-10.2); Carbon Dioxide 28 mmol/L (22.0-30.0); Chloride 103 mmol/L (98-107); Creatinine Clearance Estimated 122 mL/min (50-200); Estimated Glomerular Filt Rate 76 ml/min (>60); GFR (African American) 92 ML/MIN (>60); Glucose 101 mg/dl (74-100); Magnesium 2.4 mg/dl (1.6-2.3); Potassium 3.2 mmoL/L (3.5-5.1); Sodium 135 mmol/L (136-145); Total Protein,Serum 6.3 g/dl (6.3-8.2)
[2023-02-10 07:03] LABS: Lymphocytes % 45 % (10-50); Monocytes % 5 % (2-9); Neutrophils % 50 % (42-76); Platelet Estimate Normal; RBC Morphology Normal; Total Cells Counted 100
--- NOTE | 2023-02-10 07:28 | HMH.PHAINT1 ---
Pharmacy Intervention Comments: Reconciled patient's medication list using pharmacy fill records and patient interview.
--- NOTE | 2023-02-10 09:37 | EXP.ACUTE.PN ---
Subjective *Date: 02/10/23 *Time: 09:37 Interval history: Pain stable overnight. No shortness of breath or chest pain. Awaiting surgery today. Clear liquids for breakfast. Stable on room air. Medical Exam Vital signs and Labs for Last 24 Hours: Vital Signs Temp Pulse Pulse Resp BP BP Pulse Ox 02/10/23 08:00 97.9 F 60 19 124/60 98 02/10/23 04:00 98.5 F 56 L 18 114/39 L 95 02/09/23 20:00 98.1 F 71 17 131/72 94 L 02/09/23 17:44 99.4 F 69 18 133/62 94 L 02/09/23 17:32 97.9 F 69 17 116/67 02/09/23 16:01 79 148/69 H 93 L 02/09/23 15:57 79 147/70 H 93 L 02/09/23 15:31 73 134/67 95 02/09/23 14:49 97.7 F 76 19 136/64 93 L Intake and Output 02/09/23 02/10/23 02/10/23 23:59 07:59 15:59 Intake Total 360 / 360 0 / 0 Output Total 250 / 250 75 / 75 Balance 110 / 110 -75 / -75 0 / -75 Intake: Intake, Oral Amount 360 / 360 0 / 0 Output: Output, Urine Amount 250 / 250 75 / 75 Other: Number of Unmeasured Voids 1 Weight 92.59 kg 93.185 kg Patient Weight 02/10/23 23:59 Weight 93.185 kg Laboratory Results - last 24 hr 02/09/23 15:54: WBC 21.5 H*, RBC 5.21, Hgb 16.4 H, Hct 48.9 H, MCV 93.8, MCH 31.6 H, MCHC 33.7, RDW 13.1, Plt Count 600 H, MPV 8.5, Neut % (Auto) 62.8, Lymph % (Auto) 28.9, [place] % (Auto) 5.1, Eos % (Auto) 1.8, Baso % (Auto) 1.4, Neut # (Auto) 13.5 H, Lymph # (Auto) 6.2 H, [place] # (Auto) 1.1 H, Eos # (Auto) 0.4, Baso # (Auto) 0.3 H, Total Counted 100, Neutrophils % (Manual) 62, Lymphocytes % (Manual) 33, Monocytes % (Manual) 3, Eosinophils % (Manual) 2, Platelet Estimate Marked increase, RBC Morphology Normal 02/09/23 15:54: PT 10.6, INR 0.98, APTT 27.8 02/09/23 15:54: Sodium 135 L, Potassium 3.4 L, Chloride 99, Carbon Dioxide 27, Anion Gap 12.4, BUN 24 H, Creatinine 0.80, Estimated Creat Clear 125, Estimated GFR 76, Est GFR ( Amer) 92, Glucose 61 L, Calcium 8.5, Total Bilirubin 1.1, AST 39 H, ALT 25, Alkaline Phosphatase 95, Total Protein 7.9, Albumin 4.3, Globulin 3.6 H, Albumin/Globulin Ratio 1.2 02/09/23 15:54: Hemoglobin A1c 8.5 H 02/09/23 15:56: SARS-CoV-2 (PCR) Not detected, Influenza A Untype (PCR) Not detected, Influenza Type B (PCR) Not detected 02/09/23 18:14: Urine Color Yellow, Urine Appearance Clear, Urine pH 6.0, Ur Specific [place] 1.015, Urine Protein Negative, Urine Glucose (UA) Negative, Urine Ketones Trace, Urine Blood Negative, Urine Nitrate Negative, Urine Bilirubin Negative, Urine Urobilinogen 0.2, Ur Leukocyte Esterase Negative, Urine RBC None, Urine WBC Occasional, Ur Squamous Epith Cells 3-5, Urine Bacteria Trace 02/09/23 21:18: POC Glucose 213 H 02/10/23 05:26: POC Glucose 116 H 02/10/23 06:30: WBC 15.3 H D, RBC 4.92, Hgb 15.2, Hct 46.6, MCV 94.8, MCH 30.9, MCHC 32.6, RDW 13.1, Plt Count 566 H, MPV 8.5, Neut % (Auto) 45.4, Lymph % (Auto) 43.2, [place] % (Auto) 5.7, Eos % (Auto) 4.0, Baso % (Auto) 1.7, Neut # (Auto) 7.0, Lymph # (Auto) 6.[address], [place] # (Auto) 0.9, Eos # (Auto) 0.6 H, Baso # (Auto) 0.3 H, Total Counted 100, Neutrophils % (Manual) 50, Lymphocytes % (Manual) 45, Monocytes % (Manual) 5, Platelet Estimate Normal, RBC Morphology Normal 02/10/23 06:30: Sodium 135 L, Potassium 3.2 L, Chloride 103, Carbon Dioxide 28, Anion Gap 7.2, BUN 20 H, Creatinine 0.80, Estimated Creat Clear 122, Estimated GFR 76, Est GFR ( Amer) 92, Glucose 101 H D, Calcium 7.7 L, Magnesium 2.4 H, Total Bilirubin 0.9, AST 38 H, ALT 20, Alkaline Phosphatase 79, Total Protein 6.3, Albumin 3.3 L D, Globulin 3.0, Albumin/Globulin Ratio 1.1 I & O for Labs for Last 24 Hours: Intake & Output 02/07/23 02/08/23 02/09/23 02/10/23 23:59 23:59 23:59 23:59 Intake Total 360 / 360 0 / 0 Output Total 250 / 250 75 / 75 Balance 110 / 110 -75 / -75 Weight 92.59 kg 93.185 kg Constitutional: Present no acute distress, obese and chronically ill appearing Head: Present atraumatic ENT: Present normal exam Respiratory: Present CTA bilat
--- NOTE | 2023-02-10 10:16 | EXP.ORTH.PN ---
Subjective *Date: 02/10/23 *Time: 09:55 Interval history: Ms. Coronel is a 52-year-old female patient admitted to the acute inpatient service after sustaining a left basicervical femur fracture. This morning she is sitting up comfortably in bed. She continues to report left hip pain as to be expected but states that it is well controlled with as needed pain medication and rest. She is n.p.o. for anticipated surgery today. She denies any other symptoms or concerns at this time. Ortho Exam (Inpt) Vital signs and Labs for Last 24 Hours: Temp Pulse Resp BP Pulse Ox 97.9 F 60 19 124/60 98 02/10/23 08:00 02/10/23 08:00 02/10/23 08:00 02/10/23 08:00 02/10/23 08:00 Laboratory Results - last 24 hr 02/09/23 15:54: WBC 21.5 H*, RBC 5.21, Hgb 16.4 H, Hct 48.9 H, MCV 93.8, MCH 31.6 H, MCHC 33.7, RDW 13.1, Plt Count 600 H, MPV 8.5, Neut % (Auto) 62.8, Lymph % (Auto) 28.9, [place] % (Auto) 5.1, Eos % (Auto) 1.8, Baso % (Auto) 1.4, Neut # (Auto) 13.5 H, Lymph # (Auto) 6.2 H, [place] # (Auto) 1.1 H, Eos # (Auto) 0.4, Baso # (Auto) 0.3 H, Total Counted 100, Neutrophils % (Manual) 62, Lymphocytes % (Manual) 33, Monocytes % (Manual) 3, Eosinophils % (Manual) 2, Platelet Estimate Marked increase, RBC Morphology Normal 02/09/23 15:54: PT 10.6, INR 0.98, APTT 27.8 02/09/23 15:54: Sodium 135 L, Potassium 3.4 L, Chloride 99, Carbon Dioxide 27, Anion Gap 12.4, BUN 24 H, Creatinine 0.80, Estimated Creat Clear 125, Estimated GFR 76, Est GFR ( Amer) 92, Glucose 61 L, Calcium 8.5, Total Bilirubin 1.1, AST 39 H, ALT 25, Alkaline Phosphatase 95, Total Protein 7.9, Albumin 4.3, Globulin 3.6 H, Albumin/Globulin Ratio 1.2 02/09/23 15:54: Hemoglobin A1c 8.5 H 02/09/23 15:56: SARS-CoV-2 (PCR) Not detected, Influenza A Untype (PCR) Not detected, Influenza Type B (PCR) Not detected 02/09/23 18:14: Urine Color Yellow, Urine Appearance Clear, Urine pH 6.0, Ur Specific [place] 1.015, Urine Protein Negative, Urine Glucose (UA) Negative, Urine Ketones Trace, Urine Blood Negative, Urine Nitrate Negative, Urine Bilirubin Negative, Urine Urobilinogen 0.2, Ur Leukocyte Esterase Negative, Urine RBC None, Urine WBC Occasional, Ur Squamous Epith Cells 3-5, Urine Bacteria Trace 02/09/23 21:18: POC Glucose 213 H 02/10/23 05:26: POC Glucose 116 H 02/10/23 06:30: WBC 15.3 H D, RBC 4.92, Hgb 15.2, Hct 46.6, MCV 94.8, MCH 30.9, MCHC 32.6, RDW 13.1, Plt Count 566 H, MPV 8.5, Neut % (Auto) 45.4, Lymph % (Auto) 43.2, [place] % (Auto) 5.7, Eos % (Auto) 4.0, Baso % (Auto) 1.7, Neut # (Auto) 7.0, Lymph # (Auto) 6.6 H, [place] # (Auto) 0.9, Eos # (Auto) 0.6 H, Baso # (Auto) 0.3 H, Total Counted 100, Neutrophils % (Manual) 50, Lymphocytes % (Manual) 45, Monocytes % (Manual) 5, Platelet Estimate Normal, RBC Morphology Normal 02/10/23 06:30: Sodium 135 L, Potassium 3.2 L, Chloride 103, Carbon Dioxide 28, Anion Gap 7.2, BUN 20 H, Creatinine 0.80, Estimated Creat Clear 122, Estimated GFR 76, Est GFR ( Amer) 92, Glucose 101 H D, Calcium 7.7 L, Magnesium 2.4 H, Total Bilirubin 0.9, AST 38 H, ALT 20, Alkaline Phosphatase 79, Total Protein 6.3, Albumin 3.3 L D, Globulin 3.0, Albumin/Globulin Ratio 1.1 I & O for Labs for Last 24 Hours: Intake & Output 02/07/23 02/08/23 02/09/23 02/10/23 23:59 23:59 23:59 23:59 Intake Total 360 / 360 0 / 0 Output Total 250 / 250 75 / 75 Balance 110 / 110 -75 / -75 Weight 204 lb 2 oz 205 lb 7.004 oz Head: Present normocephalic and atraumatic Eyes: Present as per HPI ENT: Present normal exam Neck: Present normal inspection, full ROM and trachea midline; Absent lymphadenopathy Respiratory: Present normal respiratory effort, able to speak in complete sentences and symmetric chest movement; Absent accessory muscle use Cardiac: Present Reg Rate and Rhythm GI: Present soft; Absent tenderness Comment:: Upon examination the lower extremities: The left hip is shortened and externally rotated. The skin is intact. Attempted movements of the left hip are painful. T
[2023-02-10 11:50] LABS: POC Glucose,Bedside 95 (70-110)
--- NOTE | 2023-02-10 13:47 | ECG_ITS ---
APPROVED REPORT Exam: Resting ECG HR:56 bpm ECG Measurements Heart Rate 56 AXES OK 165 P 64 QRSd 85 QRS 83 QT 423 T 92 QTc 415 Conclusion SINUS BRADYCARDIA NONSPECIFIC T-WAVE ABNORMALITY BORDERLINE ECG UNCONFIRMED REPORT Electronically signed by : Juan Arrieta MD 02/12/2023 15:44:15
--- NOTE | 2023-02-10 14:45 | PC.NURSE ---
Patient gone to pre for surgery.
--- NOTE | 2023-02-10 16:09 | XR_ITS ---
PROCEDURE INFORMATION: Exam: XR Left Hip Exam date and time: 02/10/2023 4:00 PM Age: 52 years old Clinical indication: Injury or trauma; Fall; Fracture of pelvis & hip; Left; Traumatic fracture; Neck of femur; Closed fracture; Prior surgery; Surgery date: Post-operative (0-2 days); Additional info: Left hip gamma nailing using c-arm guidance. Gamma nail left hip using c-arm guidance. Dr hernandez-orthopedist. Fluoro time2:51 TECHNIQUE: Imaging protocol: Radiologic exam of the left hip. Views: 2 or 3 views hip with pelvis when performed. COMPARISON: CT HIP LT WO CON 02/09/2023 5:22 PM FINDINGS: Bones/joints: Intraoperative images of intramedullary fixation device for previously demonstrated comminuted intratrochanteric fracture. Soft tissues: Unremarkable. Other findings: Fluoro time: 2 minutes 51 seconds. IMPRESSION: 1. Intraoperative images of intramedullary fixation device for previously demonstrated comminuted intratrochanteric fracture. 2. Fluoro time: 2 minutes 51 seconds.
--- NOTE | 2023-02-10 17:55 | P.PN_ITS ---
[facility] Disclaimer: The information contained in this section may have been updated after the patient was seen, as this information can be updated by other users. Medical History Diabetes Hyperlipidemia Neuropathy Stroke Surgical History History of ankle surgery History of partial hysterectomy Hx of section Hx of hernia repair Hx of tubal ligation Family History Diabetes Social History Smoking Status: Current every day smoker tobacco type: cigarettes packs per day: 1 second hand exposure: Yes alcohol intake: never substance use type: marijuana and amphetamines current occupational status: other Travel in the last 8 weeks: None household members: family housing: house [facility] Anesthesia Checklist Patient Identification Patient Identification: Arm Band Structural Data Admitted From: Inpatient Planned Operative Procedure/s: Left Hip Cephalomedullary Nailing Consent for Planned Operative Procedure(s) Verified: Yes Verified Documents: Surgical Consent and History and Physical NPO Status Verified Time NPO: 00:00 Additional verifications Anesthesia Reactions: No Airway Assessment C-Spine Mobility Assessed: Yes TMJ Mobility Assessed: Yes Dentition: Edentulous Neurological Assessment Level of Consciousness: Awake and Alert Anesthesia Plan Anesthesia Risk discussed: Yes Anesthesia Plan: Verified ASA Class: III Anesthesia Type: General
--- NOTE | 2023-02-10 19:17 | P.OP_ITS ---
Date of procedure: 02/10/23 Pre-op Diagnosis:: Left intertrochanteric hip fracture Post-op Diagnosis:: Same Procedure performed:: Cephalomedullary nail left femur intertrochanteric hip fracture Surgeon:: Salomon Greene DO PROJECTION WELDING MACHINE OPERATOR:: Bib Dewitt Anesthesia: GETA Estimated blood loss (mL): 200 Clinical Note:: 52-year-old female who suffered a mechanical fall on her left hip resulting in intertrochanteric hip fracture happened on Wednesday presented to the hospital on Wednesday. Operative findings:: See dictation Operative note:: Patient is identified preoperatively. Left hip marked yes my initials. Transferred operative suite placed upon the area of radiolucent fracture table. Airway secured general anesthesia administered. Left hip was then placed inline traction with the perineal post right hip in the semilithotomy position x-ray was brought into identify the hip joint and the nature of the fracture. Set up was performed with traction on the fracture table to reduce the hip this was seen on the AP and lateral views. At that time the left hip was then prepped and draped in normal sterile fashion. Once prepped and draped final operative timeout performed to identify proper patient procedure and extremity. Everyone involved the case agreed there were no counter occasions to beginning. Patient did receive preoperative antibiotics. X-ray was brought in bony landmarks of the hip were marked the tip of the greater trochanter and a 3 fingerbreadth incision 3 fingerbreadths above the greater trochanter was marked. Lateral x-ray was brought into identify trajectory of the femoral shaft. This was marked as well. Skin knife was used incise the skin and the IT band proximally I palpated the tip of the greater trochanter where the opening guidewire was placed. Opening reamer was placed for opening superiorly. Of note distally she had a very very narrow femoral canal. So the ball-tipped guidewire was selected and placed down to the knee and the flexible reamers were reamed starting with 8.5 subsequently up to an 11. The size 10 TFN Synthes nail was selected. Placed over the ball-tipped guidewire and an x-ray was used to show the proper depth impaction of the nail. The blade guide was then placed to the jig on the nail and x-rays were taken the AP and lateral views that show placement of the guidewire for the femoral head. Guidewire was placed low on the femoral head into the center of the head. This was seen on the AP and lateral views. Guidewire was measured to 95. The opening cortex reamer was utilized to break the lateral cortex. The deep drill was then placed prior to the helical blade. Helical blade size 95 was impacted into proper position. Compression then was used with clockwise dialing of the jig to create compression the top waddy was then locked. Attention was brought distally where the distal locking screw was placed through the jig. Pictures taken the AP and lateral views. Copious irrigation the wounds performed. IT band closed with 0 Vicryl suture. Deep layers closed with 0 Vicryl. Subcutaneous with 2-0 Vicryl. Surgical clips in the skin for closure. Sterile dressing placed. Patient waken from anesthesia taken recovery in stable condition. Condition: stable Disposition: PACU Complications:: None apparent
--- NOTE | 2023-02-10 19:22 | EXP.ANES.I ---
[facility] Anesthesia Record Part I Anesthesia Record I Intake, IV Amount: 1,100 Estimated blood loss (mL): 200 Urine output (mL): 200 Blood Pressure: 110/62 SaO2: 91 Pulse Rate: 75 Respiratory Rate: 16 Temperature: 97.5 F Patient is:: Drowsy and Stable Stable to PACU at:: 19:15
[2023-02-10 19:38] LABS: POC Glucose,Bedside 99 (70-110)
--- NOTE | 2023-02-10 21:10 | SUR.PHASEI ---
1924- DR CHEEK AT BEDSIDE. NNO AT THIS TIME.
[2023-02-11] VITALS (7 sets, daily range): BP systolic 107–153; BP diastolic 48–68; PULSE 64–85; RESP 16–20; TEMP 36.4–36.9; O2SAT 92–97; BMI 34.2
--- NOTE | 2023-02-11 05:40 | PC.NURSE ---
pt post op left hip IM nailing, pt with pain rated 7-8, f/c to bsd, skin pwd, dressing intact to left hip without drainage noted, no acute distress, vss, bilateral expiratory wheezes noted, 02 sats 92-97% on room air, pt with h/0 tobacco use.
[2023-02-11 06:14] LABS: POC Glucose,Bedside 308 (70-110)
[2023-02-11 06:21] LABS: Basophils # 0.1 K/mm3 (0-0.2); Eosinophils # 0.1 K/mm3 (0.0-0.4); Monocytes # 0.7 K/mm3 (0.1-1.0)
[2023-02-11 06:23] LABS: Basophils % 0.5 % (0.1-2.0); Eosinophils % 0.5 % (0.1-12.0); Hematocrit 39.8 % (37.0-47.0); Lymphocytes # 4.2 K/mm3 (0.7-4.5); Mean Corpuscular HGB Conc 31.3 g/dL (31.8-35.4); Mean Corpuscular Hemoglobin 31.4 pg (27.0-31.2); Mean Corpuscular Volume 100.4 fl (81-99); Mean Platelet Volume 8.4 fl (7.4-10.4); Monocytes % 4.3 % (1.7-9.3); Neutrophils # 11.7 K/mm3 (1.8-7.8); Neutrophils % 69.6 % (37.0-80.0); Platelet Count 482 K/mm3 (142-424); Red Blood Count 3.97 M/mm3 (4.20-5.40); Red Cell Distribution Width 12.9 % (11.5-17.5); White Blood Count 16.8 K/mm3 (4.8-10.8)
[2023-02-11 06:24] LABS: Hemoglobin 12.5 g/dL (12.2-16.2)
[2023-02-11 06:25] LABS: MANUAL DIFFERENTIAL MANUAL DIFFERENTIAL (MANUAL DIFF)
[2023-02-11 06:46] LABS: Anion Gap 11.8 mEq/L (5-15); Blood Urea Nitrogen 22 mg/dl (7-17); Calcium 7.6 mg/dl (8.4-10.2); Carbon Dioxide 21 mmol/L (22.0-30.0); Chloride 101 mmol/L (98-107); Creatinine Clearance Estimated 122 mL/min (50-200); Estimated Glomerular Filt Rate 76 ml/min (>60); GFR (African American) 92 ML/MIN (>60); Glucose 279 mg/dl (74-100); Potassium 4.8 mmoL/L (3.5-5.1); Sodium 129 mmol/L (136-145)
[2023-02-11 07:05] LABS: Lymphocytes % 26 % (10-50); Monocytes % 2 % (2-9); Neutrophils % 72 % (42-76); Platelet Estimate Slight Increase; RBC Morphology Normal; Total Cells Counted 100
--- NOTE | 2023-02-11 07:12 | EXP.ANES.II ---
[facility] Anesthesia Record Part II Anesthesia Record Part II Discharge Time: 20:00 Destination: Medical Surgical Department PACU nurse assessment reviewed?: Yes Patient Condition:: Good Anesthesia Complications:: None Swallowing reflex intact?: Yes Cyanosis?: No Blood Pressure: 122/64 Pulse Rate: 64 Temperature: 97.5 F Mental Status: Alert & Oriented Pain level:: 8 Nausea and/or vomitting:: None Intake, IV Amount: 0
--- NOTE | 2023-02-11 09:04 | HMH.OTEV ---
OT Inpatient Evaluation Rehab OT IP Evaluation Start: 02/11/23 07:24 Freq: ONCE Status: Active Protocol: Document 02/11/23 08:50 KE (Rec: 02/11/23 09:04 KE [id number]) Rehab OT IP Assessment Subjective History Dx: Cephalomedullary nail left femur intertrochanteric hip fracture Clinical Note:: 52-year-old female who suffered a mechanical fall on her left hip resulting in intertrochanteric hip fracture happened on Wednesday presented to the hospital on Wednesday. Patient lives with in 1 story apt with ramp to enter . Patient independent with ADLs and fx'l mobility prior to fall. Subjective Nena been wanting to get up. Instructed Patient on proper hand and foot placement to complete supine->sit @ EOB requiring SBA. Patient demonstrated good dynamic sitting balance @ EOB with no LOB noted. Instructed Patient on manevuer throughout environment with usage of RW. Patient completed all fx'l transfers and fx'l mobility task with RW with CGA. Instructed Patient on using B UE strength to assist with mobility with RW to follow partial weight bearing status. Teach back successful. Assisted Patient back to recliner with needing CGA. Left Patient sitting upright in chair with needs met at end of session. Objective Patient Orientation Person,Name,Age,Birthday,Year Upper Extremity Gross ROM WFL Bed Mobility bed mobility - supine/sit Assist Level Contact Guard/Hand Hold Transfer Training Sit/Stand/Pivot Transfer Assist Level Contact Guard/Hand Hold Chair Transfer Ability Contact Guard/Hand Hold Chair Transfer Technique Sit to/from Ambulatory Chair Transfer Assistive Devices Rolling Walker Lower Body Dressing Ability
--- NOTE | 2023-02-11 09:07 | EXP.ORTH.PN ---
Subjective *Date: 02/11/23 *Time: 08:45 Interval history: Ms. Coronel is a 52-year-old female patient who underwent a left femur cephalomedullary nail fixation performed by Dr. Greene yesterday 02/10/2023. Today the patient is postop day #1. This morning the patient is sitting up comfortably in a chair at the bedside. She reports some left hip pain as to be expected but states that it has been well controlled with as needed pain medication and rest. She reports that she was able to ambulate a little this morning with the assistance of physical therapy that this went well. She has eaten breakfast and denies any episodes of nausea or vomiting. No history of any fevers, chills, rigors, or distal tingling/numbness. She denies any other symptoms or concerns at this time. Ortho Exam (Inpt) Vital signs and Labs for Last 24 Hours: Temp Pulse Resp BP Pulse Ox 98.5 F 81 18 148/68 H 95 02/11/23 07:26 02/11/23 07:26 02/11/23 07:26 02/11/23 07:26 02/11/23 07:26 Laboratory Results - last 24 hr 02/10/23 11:35: POC Glucose 95 02/10/23 19:30: POC Glucose 99 02/11/23 05:30: WBC 16.8 H, RBC 3.97 L, Hgb 12.5 D, Hct 39.8, MCV 100.4 H, MCH 31.4 H, MCHC 31.3 L, RDW 12.9, Plt Count 482 H, MPV 8.4, Neut % (Auto) 69.6, Lymph % (Auto) 25.0, Sumner % (Auto) 4.3, Eos % (Auto) 0.5, Baso % (Auto) 0.5, Neut # (Auto) 11.7 H, Lymph # (Auto) 4.2, Sumner # (Auto) 0.7, Eos # (Auto) 0.1, Baso # (Auto) 0.1, Total Counted 100, Neutrophils % (Manual) 72, Lymphocytes % (Manual) 26, Monocytes % (Manual) 2, Platelet Estimate Slight increase, RBC Morphology Normal 02/11/23 05:30: Sodium 129 L, Potassium 4.8 D, Chloride 101, Carbon Dioxide 21 L, Anion Gap 11.8, BUN 22 H, Creatinine 0.80, Estimated Creat Clear 122, Estimated GFR 76, Est GFR ( Amer) 92, Glucose 279 H D, Calcium 7.6 L 02/11/23 06:00: POC Glucose 308 H* I & O for Labs for Last 24 Hours: Intake & Output 02/08/23 02/09/23 02/10/23 02/11/23 23:59 23:59 23:59 23:59 Intake Total 360 / 360 1100 / 1150 460 / 460 Output Total 250 / 250 275 / 275 1150 / 1150 Balance 110 / 110 825 / 875 -690 / -690 Weight 204 lb 2 oz 205 lb 7.004 oz 205 lb 1.6 oz Microbiology Reports for the Last 24 Hours: Microbiology 02/10/23 17:20 Urine,Catheterized Urine Culture - Preliminary Gram Negative Rods Head: Present normocephalic and atraumatic Eyes: Present as per HPI ENT: Present normal exam Neck: Present normal inspection, full ROM and trachea midline; Absent lymphadenopathy Respiratory: Present normal respiratory effort, able to speak in complete sentences and symmetric chest movement; Absent accessory muscle use Cardiac: Present Reg Rate and Rhythm GI: Present soft; Absent tenderness Comment:: Upon examination the lower extremities: Limb lengths are grossly equal. Upon examination of the left hip, dressings present are clean, dry, and intact. Attempted movements of the left hip are somewhat painful. Thigh and calf are soft and nontender; Homans' sign is negative. No clinical evidence of DVT or compartment syndrome noted. Posterior tibial pulse 2+; capillary refill is brisk. Sensation to light touch is grossly intact throughout. Patient is actively mobilizing the foot, ankle, and toes. Skin: Present intact, warm and normal turgor; Absent cyanosis, erythema, lesions or jaundice Neuro: Present Cranial Nerve 2-12 Intact, Motor Function Intact, Sensory Function Intact, alert, awake, oriented x 3, tone normal and moves all extremities; Absent Numbness or Tingling Assessment and Plan *Assessment and plan (1) Basicervical fracture of left femur: Status: Acute Category: Medical Code(s): S72.042A - Displaced fracture of base of neck of left femur, initial encounter for closed fracture Plan I have discussed the clinical findings, diagnostic imaging, and progress with the patient. Overall she is doing well this morning from an orthopedic standpoint and may be disc
--- NOTE | 2023-02-11 09:57 | EXP.DC.SUM ---
General Admission date:: 02/09/23 Discharge date: 02/11/23 HPI HPI HPI: Ms. Coronel is a 52-year-old female with diabetes, hypertension, obesity who presented to the ER because of persistent left hip pain since last Wednesday. States she was not doing as good a job controlling her blood sugar and felt weak over the past several weeks. On Wednesday she fell and had acute worsening of pain. Thought that she bruised her hip and was hesitant to come to the ER/hospital for further evaluation. Her fall was from a standing height because of a syncopal event. She has had significant stiffness, swelling, pain since Wednesday. She normally walks without any assistive device but has required a walker since her fall on Wednesday. Denies any shortness of breath, chest pain, nausea, vomiting, confusion, head trauma. No bruising or bleeding. On evaluation in the ER, noted to have left hip fracture on imaging. Orthopedics consulted, medicine consulted for admission. After arriving to the floor, patient states that her pain is stable. Orthopedics is already evaluated, plan for surgery tomorrow. Tolerating p.o. intake, on room air. Hospital Course Hospital Course Hospital Course: 52-year-old female with left hip pain, found to have left hip/femur fracture.? Orthopedics consulted.? Planning to go to surgery tomorrow.? ER consulted medicine for admission, patient admitted to inpatient status.? Problems addressed as follows: Left hip fracture -Orthopedics consulted, taken for surgery on 02/10/2023. Tolerated procedure well. Cephalomedullary nailing of left femur. Some difficulty with pain control after procedure due to patient's Suboxone use. Continue Toradol and Tylenol at discharge. Resume Suboxone regimen as there is a component of pain relief that this provides. Continue home gabapentin regimen. Continue aspirin 325 twice daily for DVT prophylaxis postop for 6 weeks. Follow-up with orthopedics as scheduled. Did well with physical therapy. Will discharge home with her . Provided walker at discharge. Plan for outpatient physical therapy. Hypertension -Held lisinopril on day of surgery, resumed thereafter. Continue home Diabetes -A1c 8.5, suggests inadequate control. Continue home glargine regimen twice daily. Required insulin during admission. Further management as an outpatient by her PCP. UTI -Patient had a urine culture with greater than 100,000 CFU's gram-negative rods. Initiated on ceftriaxone during admission. Transition to cefdinir for discharge. Relatively asymptomatic. Complete 5-day empiric course given recent surgery to minimize risk for hardware infection. Chronic pain -Continue home gabapentin and home Suboxone regimen Celexa and trazodone for mood per home regimen. Patient stable for discharge home with caregiver/. Outpatient therapy. Follow-up with orthopedics and PCP as scheduled Exam Data for Last 24 hours Vital signs and Labs for Last 24 Hours: Temp Pulse Resp BP Pulse Ox 98.5 F 81 18 148/68 H 95 02/11/23 07:26 02/11/23 07:26 02/11/23 07:26 02/11/23 07:26 02/11/23 07:26 Laboratory Results - last 24 hr 02/10/23 11:35: POC Glucose 95 02/10/23 19:30: POC Glucose 99 02/11/23 05:30: WBC 16.8 H, RBC 3.97 L, Hgb 12.5 D, Hct 39.8, MCV 100.4 H, MCH 31.4 H, MCHC 31.3 L, RDW 12.9, Plt Count 482 H, MPV 8.4, Neut % (Auto) 69.6, Lymph % (Auto) 25.0, Lea % (Auto) 4.3, Eos % (Auto) 0.5, Baso % (Auto) 0.5, Neut # (Auto) 11.7 H, Lymph # (Auto) 4.2, Lea # (Auto) 0.7, Eos # (Auto) 0.1, Baso # (Auto) 0.1, Total Counted 100, Neutrophils % (Manual) 72, Lymphocytes % (Manual) 26, Monocytes % (Manual) 2, Platelet Estimate Slight increase, RBC Morphology Normal 02/11/23 05:30: Sodium 129 L, Potassium 4.8 D, Chloride 101, Carbon Dioxide 21 L, Anion Gap 11.8, BUN 22 H, Creatinine 0.80, Estimated Creat Clear 122, Estimated GFR 76, Est GFR ( Amer) 92, Glucose 279 H D, Calcium 7.6 L 02/11/23 06:00: POC Glucose
--- NOTE | 2023-02-11 10:01 | HMH.PTEV ---
Physical Therapy Evaluation Rehab PT IP Evaluation Start: 02/10/23 19:27 Freq: ONCE Status: Active Protocol: Document 02/11/23 09:55 PHORNI (Rec: 02/11/23 10:01 PHORNE [id number]) Subjective/History History History 52 yowf adm to [facility] after ground level fall at home with resulting L hip fx, now S/P L femur IMN. She has hx of DM- II, HTN. She reports she lives with family, 1 step to enter the home, and is generally independent with all mobility without AD. She did borrow a walker from a friend after fall. Subjective Subjective She reports she feels sore in her L hip, but overall feels good today. Rehab PT IP Eval Objective Appearance Patient Behavior Appropriate Patient Orientation Person,Place,Time Difficulty following instructions none Speech Pattern Clear Ambulation Patient Able to Ambulate Yes Ambulation Observation IP General Gait Pattern Observation Antalgic Gait,Decrease Weight Bear (L) Ambulation Distance (feet) 20 Ambulation Assistive Device Rolling Walker Ambulation Ability Contact Guard/Hand Hold Balance Ability to Arise Able, uses arms to help Sitting Balance Steady, safe Standing Balance Steady, wide stance Dynamic Sitting Balance Ability Good Dynamic Standing Balance Ability Good Transfers Bed Transfer Ability Contact Guard/Hand Hold Chair Transfer Ability Contact Guard/Hand Hold Sit to Stand Bed Transfer Ability Contact Guard/Hand Hold Sit to Stand Chair Transfer Ability Contact Guard/Hand Hold Rehab PT IP prob,goals,plan Problems Date of Evaluation: 02/11/23 PT IP Problems Bed Mobility,Transfers,Gait Rehab Potential Rehab Potential Good Equipment Needs Assistive Devices Rolling / Wheeled Walker Plan PT Intervention Plan Bed Mobility,Transfers,Gait, Therapeutic Exercise PT Plan Frequency BID Duration LOS Discharge Goals Bed Transfer Ability Supervision/Stand by Sit to Stand Chair Transfer Ability Supervision/Stand by Ambulation Assistive Device Rolling Walker Ambulation Distance (feet) 30 Discharge Plan PT Discharge Plan Pt is appropriate to return home once medically stable for d/c. G -code Req
--- NOTE | 2023-02-11 11:35 | CARE MANAGER ---
Received referral on the above stated patient for REHAB PLACEMENT. Patient is s/p hip fracture with repair, post PT eval here at [facility] it was determined that patient is appropriate to return home with outpatient PT here at [facility]. Appointment was given for outpatient PT for February 16, patient is aware. Rolling walker was requested for patient and per patient choice from [facility] Medical orders and demographics faxed.
[2023-02-11 11:45] LABS: POC Glucose,Bedside 171 (70-110)
[2023-02-12 02:20] LABS: POC Glucose,Bedside 162 (70-110)
--- NOTE | 2023-02-12 14:05 | CARE MANAGER ---
KANDI Mcnulty, spoke with patient earlier today as ortho received a call and thought patient might need placement. Patient did not need placement but pain medication. Patient is managing ok at home. LOOC Porter
== END 2023-02-11 12:34 | disposition home or self-care (01) | DRG 481 ==
LOC: ER 16:44 → 2ND 22:20
PROVIDERS: Orthopaedic Surgery; Admitting Provider Internal Medicine Adolescent Medicine; Emergency Provider Student in an Organized Health Care Education/Training Program; PCP Family Medicine; Visit Provider Internal Medicine Adolescent Medicine
PROC: 0QS736Z Reposition Left Upper Femur with Intramedullary Internal Fixation Device, Percutaneous Approach (ICD-10-PCS; CPT 27245; principal; 2023-02-10 15:00)
DX: S72.042A Displaced fracture of base of neck of left femur, initial encounter for closed fracture (principal); N39.0 Urinary tract infection, site not specified; I10 Essential (primary) hypertension; E66.9 Obesity, unspecified; Z68.34 Body mass index [BMI] 34.0-34.9, adult; E78.5 Hyperlipidemia, unspecified; Z86.73 Personal history of transient ischemic attack (TIA), and cerebral infarction without residual deficits; F17.210 Nicotine dependence, cigarettes, uncomplicated; G89.29 Other chronic pain; E11.40 Type 2 diabetes mellitus with diabetic neuropathy, unspecified; M25.552 Pain in left hip; Z79.4 Long term (current) use of insulin; W19.XXXA Unspecified fall, initial encounter
CPT/HCPCS: 27245; 36415; 73502; 73700; 76000; 80048; 80053; 81001; 82962; 83036; 83735; 85007; 85025; 85610; 85730; 87086; 87088; 87186; 93005; 97162; 97165; 99285; C1713; C1769; C1776; C9803; J0574; J0696; J2405; U0003; U0005

== ENCOUNTER → 2023-03-02 15:00 | Outpatient (CLI) | payer MEDICAID, SELFPAY ==
--- NOTE | 2023-03-02 15:10 | XR_ITS ---
FINAL REPORT CLINICAL HISTORY: fracture s/p surgery COMPARISON: Intraoperative fluoroscopy images from February 10, 2023 FINDINGS: Two views of the left hip and an AP pelvis were obtained. There are postoperative changes from ORIF. There is a femoral neck/intertrochanteric femur fracture. The femoral head/neck component has probably migrated and is seen along the superolateral border and extends beyond the superior femoral head. IMPRESSION: Femoral neck/intertrochanteric femur fracture with changes of ORIF. The femoral component of the ORIF has probably migrated and is seen along the superolateral border and extends beyond the superior femoral head. Reviewed, Interpreted and Dictated by Jose C Andre III, MD Transcribed by Ariel Escudero Authenticated and [facility]
== END ==
PROVIDERS: PCP Family Medicine; Visit Provider Orthopaedic Surgery
DX: M25.552 Pain in left hip (principal); S72.042A Displaced fracture of base of neck of left femur, initial encounter for closed fracture
CPT/HCPCS: 73502

== ENCOUNTER 2023-03-03 14:30 | Outpatient (RCR) | payer MEDICAID, SELFPAY ==
--- NOTE | 2023-02-16 15:58 | HMH.PTOPEV ---
PT Outpatient Evaluation Rehab PT Outpatient Evaluation Start: 02/16/23 14:57 Freq: Status: Active Protocol: Document 02/16/23 15:42 EDISON (Rec: 02/16/23 15:58 EDISON [id number]) E-signed By Nick Bergeron, PT Outpatient Therapy Subjective History Subjective History Patient is a 52 year old female presenting to outpatient PT with reports of acute L hip S/P intertrochanteric fracture with intermedullary nailing peformed 02/10/23. Patient had a syncopal episode resulting in fall. Comorbidities include hx of diabetes, HTN, L ankle ORIF and hernia. Chief Complaint Pain,Stiff,Weakness Symptom Type Ache,Throb Symptoms Relieved By Rest/Positioning,OTC Meds Prior Functional Limitations None Current Functional Limitations Housework,Standing,Walking, Stairs,Balance,Bending/ Stooping Symptom Description Constant but Variable Level of pain today (0-10) 7 Pain scale - at its best (0-10) 10 Hip/Knee Eval Gait Observation General Gait Pattern Observation Antalgic Gait Assistive Device Assistive Devices Rolling / Wheeled Walker Palpation Tenderness left Knee Palpation Finding Tenderness Knee Palpation Overall Comment Surgical incision 3/4 MMT right Hip Flexion Strength Grade 3+ Fair+ Hip Abduction Strength Grade 4- Good- Hip Adduction Strength Grade 4- Good- Hip External Rotation Strength Grade 3+ Fair+ Hip Internal Rotation Strength Grade 3+ Fair+ Knee Extension Strength Grade 4- Good- Knee Flexion Strength Grade 4- Good- ROM left Hip Flexion w/Knee Flexed Passive Range 82 of Motion (degrees) Hip Flexion w/Knee Extended Passive 43 Range of Motion (degrees) Hip Abduction Passive Range of Motion ( 28 degrees) Knee ROM Reason Not Measured Within Functional Limits Special Tests Hip Piriformis Test Positive Left Hip Scouring (Quadrant) Test Positive Left Outpatient Therapy Assessment Impairments Problems/Impairmments Palpation Tenderness,Impaired Range of Motion,Impaired Strength,Impaired Endurance, Impaired Transfers,Impaired Gait Pattern,Impaired Walking, Impaired Standing,Impaired Household Care,Impaired Stair Climbing,Impaired Incline
== END 2023-03-03 14:35 | disposition home or self-care (01) ==
LOC: PT 14:30
PROVIDERS: PCP Family Medicine; Visit Provider Internal Medicine Adolescent Medicine
DX: S72.042D Displaced fracture of base of neck of left femur, subsequent encounter for closed fracture with routine healing (principal)
CPT/HCPCS: 97163

== ENCOUNTER → 2023-03-05 13:00 | Outpatient (CLI) | payer MEDICAID, SELFPAY ==
--- NOTE | 2023-03-05 13:09 | XR_ITS ---
FINAL REPORT CLINICAL HISTORY: pain s/p hip surgery COMPARISON: 03/02/2023 FINDINGS: Left hip Three views were obtained. There are postoperative changes from ORIF of an intertrochanteric fracture. Again identified is superior displacement of the femoral head and neck components which may be dislodged. The overall appearance is stable as compared to prior. No new abnormality is identified. IMPRESSION: Stable appearance of the left hip. Reviewed, Interpreted and Dictated by Jose C Andre III, MD Transcribed by Farida Lehman Authenticated and [facility]
== END ==
PROVIDERS: PCP Family Medicine; Visit Provider Orthopaedic Surgery
DX: M25.552 Pain in left hip (principal); S72.002A Fracture of unspecified part of neck of left femur, initial encounter for closed fracture
CPT/HCPCS: 73502

== ENCOUNTER → 2023-03-08 16:23 | Outpatient (CLI) | payer MEDICAID, SELFPAY ==
[2023-03-08 16:29] LABS: Microscopic, Urine URINE MICROSCOPIC (MICROSCOPIC)
[2023-03-08 17:38] LABS: Basophils # 0.1 K/mm3 (0-0.2); Basophils % 0.8 % (0.1-2.0); Eosinophils # 0.8 K/mm3 (0.0-0.4); Eosinophils % 4.6 % (0.1-12.0); Hematocrit 45.8 % (37.0-47.0); Hemoglobin 14.4 g/dL (12.2-16.2); Lymphocytes # 8.4 K/mm3 (0.7-4.5); Lymphocytes % 49.4 % (10-50); Mean Corpuscular HGB Conc 31.5 g/dL (31.8-35.4); Mean Corpuscular Hemoglobin 30.4 pg (27.0-31.2); Mean Corpuscular Volume 96.6 fl (81-99); Mean Platelet Volume 8.5 fl (7.4-10.4); Monocytes # 0.7 K/mm3 (0.1-1.0); Monocytes % 3.9 % (1.7-9.3); Neutrophils % 41.4 % (37.0-80.0); Platelet Count 710 K/mm3 (142-424); Red Blood Count 4.74 M/mm3 (4.20-5.40); Red Cell Distribution Width 13.9 % (11.5-17.5); White Blood Count 16.9 K/mm3 (4.8-10.8)
[2023-03-08 17:55] LABS: MANUAL DIFFERENTIAL MANUAL DIFFERENTIAL (MANUAL DIFF)
[2023-03-08 17:59] LABS: Appearance,Urine CLEAR (Clear); Bilirubin,Urine Negative (Negative); Blood, Urine 1+ (Negative); Color,Urine YELLOW (Yellow); Glucose,Urine (UA) Negative (Negative); Ketones,Urine Negative (Negative); Leukocyte Esterase,Urine 1+ (Negative); Nitrate,Urine Negative (Negative); PH,Urine 5.5 (5.0-8.5); Protein,Urine Negative (Negative); Specific Gravity, Urine 1.015 (1.005-1.030); Urobilinogen,Urine 0.2 EU/dl (0.2)
[2023-03-08 18:10] LABS: Erythrocyte Sedimentation Rate 22 mm/hr (0-30)
[2023-03-08 18:27] LABS: Bacteria,Urine 3+ /lpf
[2023-03-08 18:47] LABS: Chloride 106 mmol/L (98-107); Sodium 139 mmol/L (136-145)
[2023-03-08 18:48] LABS: Potassium 3.9 mmoL/L (3.5-5.1)
[2023-03-08 18:50] LABS: Blood Urea Nitrogen 12 mg/dl (7-17); Estimated Glomerular Filt Rate 66 ml/min (>60); GFR (African American) 80 ML/MIN (>60)
[2023-03-08 18:51] LABS: Anion Gap 14.9 mEq/L (5-15); Calcium 9.2 mg/dl (8.4-10.2); Carbon Dioxide 22 mmol/L (22.0-30.0); Glucose 70 mg/dl (74-100)
[2023-03-08 18:57] LABS: C-Reactive Protein 15.3 mg/L (0-4)
[2023-03-08 20:30] LABS: Eosinophils % 3 % (0-3); Lymphocytes % 45 % (10-50); Monocytes % 4 % (2-9); Neutrophils % 48 % (42-76); Total Cells Counted 100
[2023-03-08 20:31] LABS: Platelet Estimate Marked Increase; RBC Morphology Normal
== END ==
PROVIDERS: PCP Family Medicine; Visit Provider Orthopaedic Surgery
DX: S72.042A Displaced fracture of base of neck of left femur, initial encounter for closed fracture (principal); R79.82 Elevated C-reactive protein (CRP)
CPT/HCPCS: 36415; 80048; 81001; 85007; 85025; 85651; 86140; 87086; 87088; 87186

== ENCOUNTER → 2023-04-27 15:24 | Outpatient (CLI) | payer MEDICAID, SELFPAY ==
--- NOTE | 2023-04-27 15:31 | MM_ITS ---
PROCEDURE INFORMATION: Exam: MG Bilateral Screening 3D Mammography Exam date and time: 04/27/2023 3:20 PM Age: 52 years old Clinical indication: Screening examination TECHNIQUE: Imaging protocol: Bilateral Screening tomosynthesis and 2D mammography including computer-aided detection (CAD) when performed. COMPARISON: 1. MG DIG MAMM-SCREEN JUJU 05/24/2019 4:10 PM 2. MG DMSB DIG MAMM-SCREEN JUJU W/CAD 01/14/2017 10:56 AM FINDINGS: MAMMOGRAPHY: Breast composition: The breasts are almost entirely fatty. Mass: None. Architectural distortion: None. Calcifications: No suspicious calcifications. Asymmetric density: None. Skin thickening: None. Axillary adenopathy: None. IMPRESSION: No mammographic evidence of malignancy. Annual screening is recommended unless otherwise clinically indicated. ASSESSMENT: BI-RADS Category 1: Negative
== END ==
PROVIDERS: PCP Family Medicine; Visit Provider Obstetrics & Gynecology
DX: Z12.31 Encounter for screening mammogram for malignant neoplasm of breast (principal)
CPT/HCPCS: 77063; 77067

== ENCOUNTER 2024-03-06 13:47 | Emergency (ER) | payer MEDICARE, SELFPAY ==
[2024-03-06] VITALS (8 sets, daily range): BP systolic 134–184; BP diastolic 61–87; PULSE 57–85; RESP 18–20; TEMP 36.7–36.9; O2SAT 92–97; BMI 33.3
--- NOTE | 2024-03-06 14:08 | XR_ITS ---
FINAL REPORT CLINICAL HISTORY: fall a few days ago FINDINGS: SACRUM/COCCYX 2 views were obtained. There is dislocation of the acetabular component of the hip prosthesis. The sacral arches are intact. No acute fracture is identified. IMPRESSION: Dislocation of the acetabular component of the hip prosthesis. No acute fracture is identified. Reviewed, Interpreted and Dictated by Gaston Javier MD Transcribed by Janet Peralta Authenticated and [facility]
--- NOTE | 2024-03-06 14:08 | XR_ITS ---
FINAL REPORT CLINICAL HISTORY: fall COMPARISON: 03/05/2023 FINDINGS: An AP view of the pelvis and a frog leg views of the left hip were obtained. There is no prior exam for comparison. There is a total hip arthroplasty on the left side, and the acetabular component of the prosthesis has dislocated from the acetabulum. There are multiple small fragments overlying the joint space that may represent heterotopic bone ossification. Remaining osseous pelvis is within normal limits. Soft tissues are within normal limits. IMPRESSION: Total hip arthroplasty on the left side, and the acetabular component of the prosthesis has dislocated from the acetabulum as described above. Reviewed, Interpreted and Dictated by Gaston Javier MD Transcribed by Winnie Ludwig Authenticated and [facility]
--- NOTE | 2024-03-06 14:25 | EXP.UTC ---
Discharge Plan Disposition Patient Disposition: Still a Patient Condition: Good Prescriptions Prescriptions: No Action gabapentin 300 mg capsule 600 mg PO BID insulin glargine [Basaglar KwikPen U-100 Insulin] 100 unit/mL (3 mL) insulin pen 60 unit SQ BID buprenorphine-naloxone 8-2 mg tablet, sublingual 1 tab sublingual BID cyclobenzaprine 10 mg tablet 10 mg PO BID Qty: 60 0RF ibuprofen 800 mg tablet 800 mg PO Q6H PRN (Reason: pain) Qty: 90 0RF cyclobenzaprine 10 mg tablet 10 mg PO TID PRN (Reason: muscle spasm) Qty: 60 0RF aspirin 325 mg tablet 325 mg PO BID cefdinir 300 mg capsule 300 mg PO BID oxycodone-acetaminophen 5-325 mg tablet 1 tab PO Q4H PRN (Reason: post op pain) Qty: 42 0RF citalopram [Celexa] 40 mg tablet 40 mg PO DAILY lisinopril 2.5 mg tablet 20 mg PO DAILY trazodone 50 mg tablet 50 mg PO HS PRN (Reason: Insomnia) cholecalciferol (vitamin D3) 50 mcg (2,000 unit) Tablet 50 mcg PO DAILY sennosides-docusate sodium [Senna with Docusate Sodium] 8.6-50 mg tablet 1 tab-cap PO BIDP PRN (Reason: constipation) 10 Days Qty: 20 0RF Referrals Follow up/Referrals: Hernan Gooden [Primary Care Provider] - See instructions Clinical Impressions Clinical Impression: Dislocation of left hip, Coccyx pain Discharge ED Provider: Jono Cueva [facility] General Stated complaint: AO- fell 03/02/24, pain in L hip Time Seen by Provider: 03/06/24 14:25 History of Present Illness Provider Complaint: She states that she fell at home 4 days ago. Since then she has had left hip pain and coccyx pain. The left hip pain is has been so severe that she has not been able to bear weight or walk on it. She fell 1 year ago and fractured this hip. She had ORIF here at this hospital then. She states that she has did fine since then up until she fell 4 days ago. Related Data Home Medications Medication Instructions Recorded Confirmed buprenorphine 8 mg-naloxone 2 mg 1 tab sublingual BID chronic pain 01/20/23 03/02/23 sublingual tablet gabapentin 300 mg capsule 600 mg PO BID neuropathy 01/20/23 03/02/23 insulin glargine 100 unit/mL (3 60 unit SQ BID Diabetes 01/20/23 03/02/23 mL) subcutaneous pen (Basaglar KwikPen U-100 Insulin) citalopram 40 mg tablet (Celexa) 40 mg PO DAILY Mood 02/09/23 03/02/23 lisinopril 2.5 mg tablet 20 mg PO DAILY blood pressure 02/09/23 03/02/23 trazodone 50 mg tablet 50 mg PO HS PRN Insomnia 02/09/23 03/02/23 cholecalciferol (vitamin D3) 50 50 mcg PO DAILY Supplement 02/10/23 03/02/23 mcg (2,000 unit) tablet aspirin 325 mg tablet 325 mg PO BID . 03/08/23 cefdinir 300 mg capsule 300 mg PO BID Infection 03/08/23 Previous Rx's Medication Instructions Recorded sennosides 8.6 mg-docusate sodium 1 tab-cap PO BIDP PRN constipation 02/11/23 50 mg tablet (Senna with Docusate 10 days #20 tabs Sodium) cyclobenzaprine 10 mg tablet 10 mg PO BID muscle spasm #60 tabs 02/12/23 cyclobenzaprine 10 mg tablet 10 mg PO TID PRN muscle spasm #60 03/04/23 tabs ibuprofen 800 mg tablet 800 mg PO Q6H PRN pain #90 tabs 03/04/23 oxycodone-acetaminophen 5 mg-325 1 tab PO Q4H PRN post op pain #42 03/08/23 mg tablet tabs Allergies Allergy/AdvReac Type Severity Reaction Status Date / Time No Known Allergies Allergy Verified 03/02/23 16:17 [facility] Disclaimer: The information contained in this section may have been updated after the patient was seen, as this information can be updated by other users. Medical History (Updated 03/06/24 @ 15:16 by Jono Cueva APRN) Stroke Diabetes Neuropathy Hyperlipidemia Surgical History (Updated 03/08/23 @ 10:58 by Lebron Clemente RN) History of hip surgery Hx of section Hx of tubal ligation Hx of hernia repair History of ankle surgery History of partial hysterectomy Family History Other Diabetes Social History (Updated 03/08/23 @ 11:00 by Lebron Clemenet RN) Smoking Status: Current every day smoker tobacco type: cigarettes packs per day: 1 second hand exposure: Yes alcohol intake: never substance use type: marijuana and amphetamines current occupational status: unemployed and other Travel in the last 8 weeks: None household members: family housing: house ROS Obtained: Yes All systems reviewed & no additional complaints except as documented Constitutional Constitutional: Denies chills and Denies fever(s) Eyes Eyes: Denies eye discharge ENT Ears, Nose, Mouth, and Throat: Denies dizziness, Denies otalgia and Denies sore throat Cardiovascular Cardiovascular: Denies chest pain Respiratory Respiratory: Denies shortness of breath, Denies chest congestion, Denies cough, Denies stridor and Denies wheezing Gastrointestinal Gastrointestingal: Denies nausea or vomiting Musculoskeletal Musculoskeletal: Reports as per HPI and Reports back pain Integumentary/Breasts Skin/Breast: Denies redness, Denies rash and Denies wounds Neurologic Neurologic: Denies dizziness and Denies paresthesias Allergic/Immunologic Allergic/Immunologic: Denies wheezing Physical Exam General General appearance: alert and in no apparent distress Head Head exam: atraumatic, normocephalic and normal inspection Eye Eye exam: Present normal appearance, PERRL and EOMI ENT ENT exam: Present normal exam, normal oropharynx, mucous membranes moist, TM's normal bilaterally and normal external ear exam Neck Neck exam: Present normal inspection, full ROM and trachea midline; Absent meningismus or lymphadenopathy Chest Chest inspection: Present normal inspection and symmetric chest wall rise; Absent tenderness Respiratory Respiratory exam: Present normal lung sounds bilaterally; Absent respiratory distress Cardiovascular Cardiovascular exam: Present regular rate and normal rhythm; Absent JVD Abdominal Exam Abdominal exam: Present soft and normal bowel sounds; Absent distention, tenderness or guarding Extremities Exam Extremities exam: Present normal capillary refill; Absent calf tenderness Expanded Lower Extremity Exam Left: Hip/Pelvis exam: Present tenderness, pelvis stable, pain on hip/pelvis palpation and hip pain on leg movement; Absent full ROM, swelling, ecchymosis, deformity, dislocation, external rotation, internal rotation, shortening of leg, erythema, crepitus, laceration, abrasion or other Upper leg exam: Present normal inspection and full ROM; Absent tenderness Knee exam: Present normal inspection and full ROM; Absent tenderness Lower leg exam: Present normal inspection and full ROM; Absent tenderness Ankle exam: Present normal inspection and full ROM; Absent tenderness Foot/toe exam: Present normal inspection and full ROM; Absent tenderness Neurovascular/Tendon exam: Present normal capillary refill Gait: not tested/not observed Back Exam Back exam: Present normal inspection; Absent tenderness Neurological Exam Neurological exam: Present alert and oriented X3 Psychiatric Psychiatric exam: Present normal affect and normal mood Skin Skin exam: Present warm, dry, intact and normal color Lymphatic Lymphatic Findings: no adenopathy Medical Decision Making Medical Records Medical records reviewed: No I reviewed the patient's medical records. Carter Inquiry Pt receiving controlled substance: No Orders (Tests/Meds): ORDERS Category Date Time Status Coccyx XR 2 view [XR coccyx 2V] Stat Exams 03/06/24 14:08 Ordered XR hip LT 2-3V w/pelvis Stat Exams 03/06/24 14:08 Ordered Medical Decision Narrative: She was transferred to the ER due to left hip dislocation noted on x-ray.
--- NOTE | 2024-03-06 15:15 | PC.NURSE ---
Pt arrived to ED room 2 via wheelchair
--- NOTE | 2024-03-06 15:45 | PC.NURSE ---
called [facility] per Dr Salvador to speak with joint specialist about this pt.
--- NOTE | 2024-03-06 15:48 | PC.NURSE ---
[facility] called and Dr Chávez is speaking with Dr Salvador about this pt
--- NOTE | 2024-03-06 15:53 | PC.NURSE ---
Dr. Newell accepted pt
--- NOTE | 2024-03-06 15:56 | ED_ITS ---
Discharge Plan Disposition Patient Disposition: Xfer Other Condition: Good Prescriptions Prescriptions: No Action gabapentin 300 mg capsule 600 mg PO BID insulin glargine [Basaglar KwikPen U-100 Insulin] 100 unit/mL (3 mL) insulin pen 60 unit SQ BID buprenorphine-naloxone 8-2 mg tablet, sublingual 1 tab sublingual BID ibuprofen 800 mg tablet 800 mg PO Q6H PRN (Reason: pain) Qty: 90 0RF aspirin 325 mg tablet 325 mg PO BID oxycodone-acetaminophen 5-325 mg tablet 1 tab PO Q4H PRN (Reason: post op pain) Qty: 42 0RF citalopram [Celexa] 40 mg tablet 40 mg PO DAILY lisinopril 2.5 mg tablet 20 mg PO DAILY trazodone 50 mg tablet 50 mg PO HS PRN (Reason: Insomnia) cholecalciferol (vitamin D3) 50 mcg (2,000 unit) Tablet 50 mcg PO DAILY sennosides-docusate sodium [Senna with Docusate Sodium] 8.6-50 mg tablet 1 tab-cap PO BIDP PRN (Reason: constipation) 10 Days Qty: 20 0RF diclofenac sodium 75 mg tablet,delayed release (DR/EC) See Rx Instructions .ROUTE .COMPLEX Rx Instructions: see rx pantoprazole 40 mg tablet,delayed release (DR/EC) 40 mg PO DAILY hydrochlorothiazide 12.5 mg tablet 12.5 mg PO DAILY Referrals Follow up/Referrals: Hernan Gooden [Primary Care Provider] - See instructions Clinical Impressions Clinical Impression: Dislocation of left hip Discharge ED Provider: Justice Salvador General Adult HPI General Chief complaint: Extremity Injury, Lower Stated complaint: AO- fell 03/02/24, pain in L hip Time Seen by Provider: 03/06/24 14:25 Mode of Arrival: Wheelchair Source of Information: Patient Limitations: No Limitations Description of Symptoms (Recalled from ER Triage Doc. by RN): pt fell on wednesday night while intoxicated and landed on her left hip on a concrete surface and has been limping around on it. pain wasnt getting any better so patient came to [facility] today and xray showed a left hip dislocation on a artificial hip that was replaced a year ago by pt is able to feel and move toes on left side, PMS intact History of Present Illness HPI narrative: Patient is a 53-year-old female presenting today from the urgent treatment clinic with a left hip dislocation. She was treated by Dr. Greene in January of last year for an intertrochanteric hip fracture treated with an IM nail. 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 Torres at [facility]. She had been doing well up until Wednesday where she was significantly intoxicated and she fell injuring her left hip. She has been nonambulatory since that time and just thought that she bruised it she subsequently came into the hospital to our urgent treatment clinic today had an x-ray that showed a hip dislocation. She denies any severe pain at the moment is intact neurovascularly from historical standpoint Related Data Home Medications Medication Instructions Recorded Confirmed buprenorphine 8 mg-naloxone 2 mg 1 tab sublingual BID chronic pain 01/20/23 03/06/24 sublingual tablet gabapentin 300 mg capsule 600 mg PO BID neuropathy 01/20/23 03/06/24 insulin glargine 100 unit/mL (3 60 unit SQ BID Diabetes 01/20/23 03/06/24 mL) subcutaneous pen (Basaglar KwikPen U-100 Insulin) citalopram 40 mg tablet (Celexa) 40 mg PO DAILY Mood 02/09/23 03/06/24 lisinopril 2.5 mg tablet 20 mg PO DAILY blood pressure 02/09/23 03/06/24 trazodone 50 mg tablet 50 mg PO HS PRN Insomnia 02/09/23 03/06/24 cholecalciferol (vitamin D3) 50 50 mcg PO DAILY Supplement 02/10/23 03/06/24 mcg (2,000 unit) tablet aspirin 325 mg tablet 325 mg PO BID . 03/08/23 03/06/24 diclofenac sodium 75 mg See Rx Instructions .Route .COMPLEX 03/06/24 03/06/24 tablet,delayed release hydrochlorothiazide 12.5 mg tablet 12.5 mg PO DAILY 03/06/24 03/06/24 pantoprazole 40 mg tablet,delayed 40 mg PO DAILY 03/06/24 03/06/24 release Previous Rx's Medication Instructions Recorded sennosides 8.6 mg-docusate sodium 1 tab-cap PO BIDP PRN constipation 02/11/23 50 mg tablet (Senna with Docusate 10 days #20 tabs Sodium) ibuprofen 800 mg tablet 800 mg PO Q6H PRN pain #90 tabs 03/04/23 oxycodone-acetaminophen 5 mg-325 1 tab PO Q4H PRN post op pain #42 03/08/23 mg tablet tabs Allergies Allergy/AdvReac Type Severity Reaction Status Date / Time No Known Allergies Allergy Verified 03/06/24 15:16 [facility] Dis[facility]: The information contained in this section may have been updated after the patient was seen, as this information can be updated by other users. Medical History (Updated 03/06/24 @ 15:56 by Jsutice Salvador MD) Stroke Diabetes Neuropathy Hyperlipidemia Surgical History History of hip surgery Hx of section Hx of tubal ligation Hx of hernia repair History of ankle surgery History of partial hysterectomy Family History Other Diabetes Social History Smoking Status: Current every day smoker tobacco type: cigarettes packs per day: 1 second hand exposure: Yes alcohol intake: never substance use type: marijuana and amphetamines current occupational status: unemployed and other Travel in the last 8 weeks: None household members: family housing: house ROS Obtained: Yes All systems reviewed & no additional complaints except as documented Physical Exam General General appearance: alert and in no apparent distress Respiratory Respiratory exam: Present normal lung sounds bilaterally Cardiovascular Cardiovascular exam: Present regular rate and normal rhythm Extremities Exam Extremities exam: Present other (Neurovascular intact left lower extremity leg is shortened and internally rotated pain with any type of movement) Neurological Exam Neurological exam: Present alert and oriented X3 Medical Decision Making Carter Inquiry Pt receiving controlled substance: No Vital Signs: 03/06/24 14:30 03/06/24 15:15 03/06/24 15:33 Temperature 98.4 F 98.0 F Temperature Source Oral Oral Pulse Rate 61 Pulse Rate [Right Radial] 66 63 Respiratory Rate 18 20 Blood Pressure 184/76 H Blood Pressure [Right Arm] 159/79 H 178/77 H Blood Pressure Mean 118 Blood Pressure Mean [Right Arm] 105 110 Blood Pressure Source [Right Arm] Automatic Cuff Blood Pressure Position [Right Arm] Sitting 02 Sat by Pulse Oximetry 96 97 97 Oxygen Delivery Method Room Air Room Air Orders (Tests/Meds): ED MEDICATIONS Generic Name Dose Route Start Last Admin Trade Name Sixto PRN Reason Stop Dose Admin Morphine Sulfate 4 mg 03/06/24 15:54 Morphine 4mg/Ml Syringe IV 03/06/24 15:55 ONCE ONE ORDERS Category Date Time Status Coccyx XR 2 view [XR coccyx 2V] Stat Exams 03/06/24 14:08 Taken XR hip LT 2-3V w/pelvis Stat Exams 03/06/24 14:08 Taken Medical Decision Narrative: 53-year-old female with radiographically a posterior hip dislocation. I reviewed the images personally interpreted them also discussed the case with our orthopedic surgeon Dr. Gt Greene. It appears as if she has had a revision surgery with a constrained liner and the cup of the prosthesis appears to have completely dislocated and there is nothing to reduce the joint back into. Even if I did attempt a reduction in almost certainly would not stay. She is likely to need an operation by a joint specialist. Orthopedic surgeon is also out of town at the moment. I spoke with [facility] after discussing this with the patient who accepted the patient for further evaluation and treatment. Critical Care Critical Care Time Critical Care Time: No
[2024-03-06] MEDS: MORPHINE 4MG/ML SYRINGE 4 MG IV (16:12)
--- NOTE | 2024-03-06 17:15 | PC.NURSE ---
report called to linn silva at [facility]
--- NOTE | 2024-03-06 17:23 | PC.NURSE ---
placed pt on bed-[facility]
--- NOTE | 2024-03-06 17:27 | PC.NURSE ---
ems notified of transfer
--- NOTE | 2024-03-06 17:45 | PC.NURSE ---
Called dietary for a tray as her FS was 55. Pt states I haven't ate all day I fell like my sugar is dropping . S/W Dr. Salvador again and he sates, she can have a full tray.
--- NOTE | 2024-03-06 17:47 | PC.NURSE ---
Rounded on pt. Pt thought her sugar was dropping. Checked her sugar with glucometer and it was 55. Advised the Doctor and a diabetic tray was ordered for this pt
== END 2024-03-06 19:17 | disposition other institution (70) ==
LOC: UTC 13:53 → ER 15:13
PROVIDERS: Emergency Provider Student in an Organized Health Care Education/Training Program; PCP Family Medicine
DX: T84.021A Dislocation of internal left hip prosthesis, initial encounter (principal); F17.210 Nicotine dependence, cigarettes, uncomplicated; E11.40 Type 2 diabetes mellitus with diabetic neuropathy, unspecified; E78.5 Hyperlipidemia, unspecified; W19.XXXA Unspecified fall, initial encounter; Z79.4 Long term (current) use of insulin
CPT/HCPCS: 72220; 73502; 96374; 99285